=== PATIENT | male | born 1940 | race Caucasian/White ===

== ENCOUNTER → 2021-04-13 12:50 | Outpatient (BNVA) | payer MEDICARE, SELFPAY | PROVIDERS: PCP Internal Medicine; Referring Provider Internal Medicine; Visit Provider Internal Medicine Cardiovascular Disease ==

== ENCOUNTER → 2021-04-27 11:14 | Outpatient (BNVA) | payer MEDICARE, SELFPAY | PROVIDERS: PCP Internal Medicine; Visit Provider Internal Medicine Cardiovascular Disease | DX: Z45.010 Encounter for checking and testing of cardiac pacemaker pulse generator [battery] (principal); I34.0 Nonrheumatic mitral (valve) insufficiency; R06.01 Orthopnea | CPT/HCPCS: 93005; 99212 ==

== ENCOUNTER → 2021-04-29 06:57 | Outpatient (REF) | payer MEDICARE, SELFPAY ==
--- NOTE | 2021-04-29 07:04 | CA_ITS ---
Transthoracic Echocardiogram Patient (Last, First, Middle): Jimbo Aguillon, Gender: Male Date of : 1940 Age: 81 Procedure Date: 04/29/2021 Procedure Type: Transthoracic Echocardiogram Location: OP Height: 172.72 cm Weight: 106.14 kg BSA: 2.18 m2 Heart Rate: bpm BP: 154 / 60 mmHg Administrative Assistant Office Manager: Referring MD: Derrell Kelly MD Symptoms: I34.0 - Nonrheumatic mitral (valve) insufficiency Conclusions: - Normal left ventricular cavity size. The left ventricular systolic function is low normal. The visually estimated ejection fraction is between 50-55%. - Normal right ventricular cavity size and systolic function. - The left atrium is severely dilated. The right atrium is severely dilated. - There is mild anterior and posterior mitral leaflet thickening. There is severe mitral valve regurgitation. The mitral regurgitation jet is directed posteriorly. - There is moderate tricuspid valve regurgitation. Moderately elevated right atrial pressure. There is no evidence of pulmonary hypertension. - There is mild dilatation of the ascending aorta measuring 3.70 cm. Findings Left Ventricle Normal left ventricular cavity size. The left ventricular systolic function is low normal. The visually estimated ejection fraction is between 50-55%. There is no evidence of regional wall motion abnormalities. Diastolic function is indeterminate on the basis of available data. Right Ventricle Normal right ventricular cavity size and systolic function. Atria The left atrium is severely dilated. The right atrium is severely dilated. Aortic Valve There is mild calcification of the aortic valve. There is no aortic valve stenosis. There is mild aortic valve regurgitation. Mitral Valve There is mild anterior and posterior mitral leaflet thickening. There is severe mitral valve regurgitation. The mitral regurgitation jet is directed posteriorly. There is no mitral valve stenosis. Pulmonic Valve The pulmonic valve is likely normal. Tricuspid Valve Normal tricuspid valve structure. There is moderate tricuspid valve regurgitation. Moderately elevated right atrial pressure. There is no evidence of pulmonary hypertension. Great Vessels There is mild dilatation of the ascending aorta measuring 3.70 cm. The visualized portions of the pulmonary artery and branches are normal. Venous The inferior vena cava is dilated and collapses less than 50% with inspiration. Pericardium/Pleural There is no evidence of pericardial effusion. Prior Study Comparison Changes noted compared to prior study dated: 06/14/2018. EF 50-55%, ESD 4.85 cm, eccentric severe MR Measurements 2D Linear Measurements RVIDd: 3.45 RVIDd Index: 1.58 IVSd: 0.79 0.6-0.9/0.6-1.0 cm LVIDd: 5.92 3.9-5.3/4.2-5.9 cm LVIDd Index: 2.72 2.4-3.2/2.2-3.1 cm/m2 LVIDs: 4.85 2.0-3.6 cm LVPWd: 1.37 0.7-1.1 cm Ao Root: 3.30 2.1-3.5 cm LA Diam: 5.40 2.7-3.8/3.0-4.0 cm LAIDs Index: 2.48 1.5-2.3 cm/m2 LV Mass: 332.03 67-162/88-224 g LV Mass Index: 152.31 43-95/49-115 g/m2 LVOT Diam: 2.30 3.0+(-)1.3 cm 2D Systolic Function EF 4C: 48.40 >55% EF 2C: 54.10 >55% EF BiP: 51.10 >55% Mitral Valve MR Vol - PW Dopp: 27.45 MR VTI: 1.83 MR ERO: 15.00 MR Alias Neil: 0.38 MR RAD: 0.60 Aortic Valve AoV Pk Neil: 1.31 AoV Mn Neil: 0.95 AoV VTI: 0.25 AoV Pk Grad: 7.00 Aov Mn Grad: 4.00 KELLEN Cont.VTI: 3.28 AI Pk Neil: 4.37 AI Bollinger: 3.38 LVOT LVOT Pk Neil: 1.01 LVOT Mn Neil: 0.68 LVOT VTI: 0.20 LVOT Pk Grad: 4.00 LVOT Mn Grad: 2.00 LVOT Diam: 2.30 LVOT Area: 4.15 Right Ventricle TAPSE (mm): 16.00 TVS' Neil: 8.30 Tricuspid Valve TR Pk Neil: 2.51 TR Pk Grad: 25.00 RA Press: 8.00 RVSP: 33.00 Great Vessels Aorta Ao Root-2D: 3.30 2.0-3.7 cm Ao Asc: 3.70 2.1-3.4 cm Updated in Other Vendor System with Status of Final Derrell Kelly MD electronically signed on 04/29/2021 11:54:28 AM with status of Final
== END ==
LOC: HO.CARD 06:57
PROVIDERS: Visit Provider Internal Medicine Cardiovascular Disease
DX: I34.0 Nonrheumatic mitral (valve) insufficiency (principal)
CPT/HCPCS: 93306

== ENCOUNTER 2021-06-04 08:39 | Outpatient (REF) | payer MEDICARE, SELFPAY ==
[2021-06-04 09:03] LABS: MANUAL DIFF FLAG NO
[2021-06-04 09:17] LABS: Basophils Percent Auto 0.5 % (0-2); Eosinophils Absolute Auto 0.2 X10*3/uL (0.0-0.4); Eosinophils Percent Auto 4.9 % (0-4); Hematocrit 26.8 % (42-52); Hemoglobin 8.2 g/dl (14.0-18.0); Imm Gran Abs Auto 0.01 X10*3/uL (0.00-0.03); Imm Gran Pct Auto 0.3 % (0.0-0.4); Lymphocytes Absolute Auto 0.8 X10*3/uL (1.2-4.9); Lymphocytes Percent Auto 19.4 % (20-40); Mean Corpuscular HGB Conc 30.6 g/dl (31.0-36.0); Mean Corpuscular Hemoglobin 25.8 pg (27.0-33.0); Mean Corpuscular Volume 84.3 fL (80-98); Mean Platelet Volume 10.6 fL (9.4-12.4); Monocytes Absolute Auto 0.3 X10*3/uL (0.1-1.2); Monocytes Percent Auto 7.8 % (2-11); Neutrophils Absolute Auto 2.6 X10*3/uL (2.0-8.3); Neutrophils Percent Auto 67.1 % (45-73); Platelet Count 138 X10*3/uL (160-400); Red Blood Count 3.18 X10*6/uL (4.60-5.80); Red Cell Distribution Width 13.2 % (11.0-16.0); White Blood Count 3.9 X10*3/uL (4.8-10.8)
[2021-06-04 09:22] LABS: INTERNATIONAL NORM RATIO 1.3 (0.9-1.1); Prothrombin Time 14.3 SEC (9.9-13.0)
[2021-06-04 10:04] LABS: Anion Gap 9 (12-20); Blood Urea Nitrogen 10 mg/dL (9-16); Calcium 9.4 mg/dL (8.4-10.2); Carbon Dioxide 30 mmol/L (22-29); Chloride 108 mmol/L (96-108); Estimated Glomerular Filt Rate > 60; Glucose Random 121 mg/dL (60-115); Potassium 4.3 mmol/L (3.3-5.1); Sodium 143 mmol/L (135-145)
== END 2021-06-04 08:40 | disposition home or self-care (01) ==
LOC: HO.LAB 08:39
PROVIDERS: PCP Internal Medicine; Visit Provider Internal Medicine Cardiovascular Disease
DX: I48.91 Unspecified atrial fibrillation (principal)
CPT/HCPCS: 36415; 80048; 85025; 85610

== ENCOUNTER 2021-06-11 09:04 | Day surgery (SDC) | payer MEDICARE, SELFPAY ==
[2021-06-05 09:33] VITALS: BMI 38.4
--- NOTE | 2021-06-10 11:42 | HO.ANESPROP2 ---
Documented by User: Areli Zamora NP 06/10/21 11:44 HPI - Anesthesia Eval Consult details Narrative: 81yo M for Pacemaker Generator Change PMFSH Active Problems Active Problems: All Active Problems (Updated 06/05/21 @ 09:18 by Reanna Snyder RN) Mitral regurgitation (Acute) Orthopnea (Acute) Pacemaker at end of battery life (Acute) Past Medical History Medical History Chronic atrial fibrillation Elevated cholesterol Hypothyroid On anticoagulant therapy Pacemaker Sleep apnea Stenosis of artery of left lower extremity Family History Family History Father HTN (hypertension) Mother Liver problem Surgical History Surgical History History of esophagogastroduodenoscopy (EGD) History of permanent cardiac pacemaker placement Social History Social History Alcohol intake: current Alcohol intake frequency: holidays/special occasions only Patient Tobacco Use Status: Former Tobacco user Quit Date: 1980 Tobacco use type: Cigarette Years Smoked: 30 Use of substances other than those prescribed or required for medical reasons: No Are you DNR?: No Advance Directives: No Advance Directives Information Provided: Yes (informational brochure mailed) Advance Directives on File: No Meds Allergies Allergy/AdvReac Type Severity Reaction Status Date / Time Penicillins [PCN] Allergy Intermediate RASH Verified 04/27/21 11:30 Home Medications Medication Instructions Recorded Confirmed Last Taken Type amlodipine 5 mg tablet 5 mg PO DAILY 04/27/21 06/05/21 06/11/21 06:30 History ascorbate calcium (vitamin C) 500 500 mg PO DAILY 04/27/21 06/05/21 Unknown History mg tablet atorvastatin 20 mg tablet 20 mg PO DAILY 04/27/21 06/05/21 Unknown History carvedilol 25 mg tablet 25 mg PO BID 04/27/21 06/05/21 06/11/21 06:30 History cholecalciferol (vitamin D3) 250 250 mcg PO DAILY 04/27/21 06/05/21 Unknown History mcg (10,000 unit) capsule digoxin 125 mcg (0.125 mg) tablet 125 mcg PO DAILY 04/27/21 06/05/21 06/11/21 06:30 History levothyroxine 125 mcg capsule 125 mcg PO DAILY 04/27/21 06/05/21 06/11/21 06:30 History rivaroxaban 20 mg tablet (Xarelto) 20 mg PO DAILY 04/27/21 06/05/21 Unknown History Exam Exam Date and Time: June 10, 2021 1142 Height,Weight and Vital Signs: Height 5 ft 6 in Weight 108 kg Pertinent Lab Results Pertinent Lab Results: Laboratory Tests 06/04/21 06/04/21 09:00 09:00 WBC 3.9 L Hgb 8.2 L Hct 26.8 L Plt Count 138 L Sodium 143 Potassium 4.3 Chloride 108 Carbon Dioxide 30 H BUN 10 Creatinine 0.85 Narrative Narrative: EKG 03/2021 Atrial fibrillation 85 beats per minute, normal axis, nonspecific ST-T changes, QTC 454 milliseconds ECHO 04/2021 Conclusions: - Normal left ventricular cavity size.? The left ventricular ? ? systolic function is low normal.? The visually estimated ejection fraction is between 50-55%.? - Normal right ventricular cavity size and systolic function.? ? - The left atrium is severely dilated.? The right atrium is? ? ? severely dilated.? - There is mild anterior and posterior mitral leaflet thickening. There is severe mitral valve regurgitation.? The mitral? regurgitation jet is directed posteriorly. ? - There is moderate tricuspid valve regurgitation.? Moderately ? elevated right atrial pressure.? There is no evidence of ? pulmonary hypertension.? - There is mild dilatation of the ascending aorta measuring 3.70 cm.?? Cardiac Device Check 03/2021 Details: [employer] latitude Approximate time to explant is less than 3 months.? Ventricular paced 15% time.? No atrial tachycardia or atrial fibrillation noticed. Assessment and Plan Assessment Anesthesia Assessment: Chart Reviewed Documented by User: Malou Goncalves MD 06/11/21 11:31 [facility] Active Problems Active Problems: All Active Problems (Updated 06/05/21 @ 09:18 by Reanna Snyder, RN) Mitral regurgitation (Acute) Orthopnea (Acute) Pacemaker at end of battery life (Acute) PINEDA. Not used CPAP for over a year. Awaiting new machine Raspy voice SOB not worsened recently Afib. Last dose of xarelto 06/08/21 Increased BMI Past Medical History Medical History Chronic atrial fibrillation Elevated cholesterol Hypothyroid On anticoagulant therapy Pacemaker Sleep apnea Stenosis of artery of left lower extremity Family History Family History Father HTN (hypertension) Mother Liver problem Family history of problems with anesthesia: No Surgical History Surgical History History of esophagogastroduodenoscopy (EGD) History of permanent cardiac pacemaker placement History of Problems with Anesthesia: No Social History Social History Alcohol intake: current Alcohol intake frequency: holidays/special occasions only Patient Tobacco Use Status: Former Tobacco user Quit Date: 1980 Tobacco use type: Cigarette Years Smoked: 30 Use of substances other than those prescribed or required for medical reasons: No Are you DNR?: No Advance Directives: No Advance Directives Information Provided: Yes (informational brochure mailed) Advance Directives on File: No Meds Allergies Allergy/AdvReac Type Severity Reaction Status Date / Time Penicillins [PCN] Allergy Intermediate RASH Verified 04/27/21 11:30 Home Medications Medication Instructions Recorded Confirmed Last Taken Type amlodipine 5 mg tablet 5 mg PO DAILY 04/27/21 06/05/21 06/11/21 06:30 History ascorbate calcium (vitamin C) 500 500 mg PO DAILY 04/27/21 06/05/21 Unknown History mg tablet atorvastatin 20 mg tablet 20 mg PO DAILY 04/27/21 06/05/21 Unknown History carvedilol 25 mg tablet 25 mg PO BID 04/27/21 06/05/21 06/11/21 06:30 History cholecalciferol (vitamin D3) 250 250 mcg PO DAILY 04/27/21 06/05/21 Unknown History mcg (10,000 unit) capsule digoxin 125 mcg (0.125 mg) tablet 125 mcg PO DAILY 04/27/21 06/05/21 06/11/21 06:30 History levothyroxine 125 mcg capsule 125 mcg PO DAILY 04/27/21 06/05/21 06/11/21 06:30 History rivaroxaban 20 mg tablet (Xarelto) 20 mg PO DAILY 04/27/21 06/05/21 Unknown History Exam Airway Mallampati Class: III TM Dist: >3cm Neck ROM: Full Heart: Irregular Lungs: CTAB Assessment and Plan Assessment Anesthesia Assessment: Anesthesia Plan Discussed Final Anesthetic Review Family History of Problems with Anesthesia: No History of Problems with Anesthesia: No NPO: Yes ASA Class: IV Final Preanesthetic Review: No Changes in Pt Med Stat, Meds/Allgs Chart Reviewed, Consent Obtained/Reviewed and Anes Risks/Benef Reviewed Patient Risk: High Procedure Risk: Intermediate Assessment/Block/Sedation in SS: Assess/Block/Sedation-SS Anesthetic Plan Anesthetic Plan: MAC: and Other Disposition: Standard PACU
--- NOTE | 2021-06-11 10:27 | PC.NURSE ---
md gill stated okay to change vancomycin dose with pharmacy to the more appropiate weight based dose. verified. pharmacy to change.
[2021-06-11] MEDS: 0.9 % Sodium Chloride 500 ML 20 ML IVCONT (11:14)
[2021-06-11] MEDS: vancomycin HCL 1,500 MG in 0.9 % Sodium Chloride 500 ML 333.33 MG IV (11:15)
--- NOTE | 2021-06-11 16:21 | PM.OP ---
Brief Operative Note Date of Service: 06/11/21 Pre-op diagnosis: complete heart block Procedure: pacemaker generator change Plan Discharge after 1 hour No showering for 5 days and keep dressing on for 5 days Surgeon: Yenny Shipley MD Was an Chemical Processing Equipment Repairer used for this Procedure?: No Estimated blood loss (mL): 50
[2021-06-11 16:24] VITALS: BP 141/57; PULSE 82; RESP 14; TEMP 36.4; O2SAT 99
[2021-06-11 16:37] VITALS: BP 159/88; PULSE 86; RESP 14; O2SAT 95
[2021-06-11] MEDS: Acetaminophen 325 MG TABLET 650 MG PO (16:43)
[2021-06-11 16:52] VITALS: BP 161/91; PULSE 72; RESP 16; O2SAT 94
--- NOTE | 2021-06-11 17:28 | W.PM.OPN ---
Operative Note Operative Note Date of Service: 06/11/21 Narrative: Date of Service: 06/11/21 Narrative: Narrative: Procedure: Dual chamber pacemaker generator change Indication: complete heart block, JUANA Anesthesia: MAC provided by anesthtesia Procedure The risks, benefits, complications, alternatives and expected outcomes were discussed with the patient. Patient was prepped and draped in the usual sterile fashion. After the antibiotic was infused, lidocaine was infiltrated medial to the deltopectoral groove. An incision was made. The incision was extended to the prepectoral fascia using blunt dissection.The leads were detached from the prior device and attached to the new device. The pacemaker was sutured to the fascia. The system was placed in the pocket. The pin of the lead was beyond the set screws. Hemostasis was verified. The pocket was closed with 3 layers. Steristrips and tegaderm were applied Device New: [employer] Accolade MRI EL DR Pacemaker model L331 serial number [id number] RV lead: Fineline II EZ ZSterox Bipolar IS1 passive RV 58 cm, model 4457 serial number [id number] R waves 15.7 mV, threshold 0.7V at 0.4 ms, impedance 343 ohms, RA lead: Fineline II EZ Sterox Bipolar IS-1 positive Fix Steroid model 4469 serial number [id number] Impedance 307 ohms, P waves 1.0 mV in AF Programmed VVIR 60 to 130 BPM Yenny Shipley Electrophysiology/Cardiology Attending
== END 2021-06-11 17:16 | disposition home or self-care (01) ==
PROVIDERS: PCP Internal Medicine; Visit Provider Internal Medicine Cardiovascular Disease
PROC: (CPT 33228; principal; 2021-06-11 11:10)
DX: Z45.010 Encounter for checking and testing of cardiac pacemaker pulse generator [battery] (principal); I50.9 Heart failure, unspecified; I48.20 Chronic atrial fibrillation, unspecified; Z79.01 Long term (current) use of anticoagulants; Z79.899 Other long term (current) drug therapy; Z88.0 Allergy status to penicillin; Z87.891 Personal history of nicotine dependence; I34.0 Nonrheumatic mitral (valve) insufficiency
CPT/HCPCS: 33228; C1722; C1785; J3010; J3370

== ENCOUNTER 2021-06-20 10:15 | Inpatient (IN) | payer MEDICARE, SELFPAY ==
[2021-06-20] VITALS (10 sets, daily range): BP systolic 125–157; BP diastolic 50–73; PULSE 71–89; RESP 16–20; TEMP 36.6–37.1; O2SAT 93–99; BMI 39.0
--- NOTE | ~2021-06-20 | XR_ITS ---
EXAMINATION: XR CHEST CLINICAL INFORMATION: Infected pacemaker site. COMPARISON: None TECHNIQUE: Frontal view of the chest was obtained. FINDINGS: The lungs are somewhat expanded without acute pneumonic process. The heart size is enlarged. There are dual pacer electrodes in the right atrium and right ventricle. No gross bony abnormality seen. XR/XR chest 1V IMPRESSION: Mild cardiomegaly. No acute pulmonary process seen.
--- NOTE | ~2021-06-20 | US_ITS ---
EXAMINATION: US VENOUS WITH DOPPLER UPPER EXTREMITY, LEFT CLINICAL INFORMATION: Edema COMPARISON: None TECHNIQUE: Ultrasound of the upper extremity is performed using compression sonography and color and pulse Doppler flow with assessment of augmentation of flow. There is also imaging and Doppler assessment of the jugular and subclavian veins. Spectral analysis with color-flow imaging is performed. FINDINGS: Respiratory variation, normal compression, and augmented flow are noted throughout the upper extremity including the axillary, brachial, cubital, and radial and ulnar veins. There is normal flow in the internal jugular and subclavian veins. There is no visible deep or superficial thrombophlebitis. US/US venous duplex UE LT IMPRESSION: No DVT demonstrated in the left upper extremity
--- NOTE | 2021-06-20 11:23 | ECG_ITS ---
Test Reason : pace maker issue Blood Pressure : / mmHG Vent. Rate : 075 BPM Atrial Rate : 000 BPM P-R Int : 000 ms QRS Dur : 102 ms QT Int : 380 ms P-R-T Axes : 000 058 -17 degrees QTc Int : 424 ms Atrial fibrillation Low voltage QRS Intra-ventricular conduction delay Nonspecific T wave abnormality Abnormal ECG Electronic ventricular pacemaker is no longer Present T wave amplitude has decreased in Lateral leads Referred By: Nimisha Conner Electronically Signed By:ERICK ROGERS MD
--- NOTE | 2021-06-20 11:28 | ED_ITS ---
HPI - Extremity Problem General Chief complaint: Extremity Problem Stated complaint: swollen arm Time Seen by Provider: 06/20/21 11:04 Source: patient Mode of arrival: ambulatory History of Present Illness HPI Narrative: 81-year-old male with a past medical history of chronic AFib, hyperlipidemia, hypothyroid, pacemaker on Xarelto, sleep apnea, S/P your pacemaker placement on 06/11 presenting to the ED complaining of LUE and LLE swelling/edema, SOB, and drainage from pacemaker site x2 days. Reports orthopnea, sleeping with 4-5 pillows at night. fever, chills, cough, CP, abdominal pain, nausea/vomiting MD Complaint: joint swelling Related Data Home Medications Medication Instructions Recorded Confirmed carvedilol 25 mg tablet 25 mg PO BID 04/27/21 06/20/21 digoxin 125 mcg (0.125 mg) tablet 125 mcg PO DAILY 04/27/21 06/20/21 levothyroxine 125 mcg capsule 125 mcg PO DAILY 04/27/21 06/20/21 rivaroxaban 20 mg tablet (Xarelto) 20 mg PO DAILY 04/27/21 06/20/21 albuterol sulfate 90 mcg/actuation 2 puff PO Q4-6H PRN 06/20/21 06/20/21 aerosol inhaler amlodipine 5 mg tablet 1 tab PO DAILY 06/20/21 06/20/21 atorvastatin 10 mg tablet 1 tab PO DAILY 06/20/21 06/20/21 Allergies Allergy/AdvReac Type Severity Reaction Status Date / Time Penicillins [PCN] Allergy Intermediate RASH Verified 04/27/21 11:30 Review of Systems Review of Systems: Constitutional: No Fever, No Chills,No Fatigue, No Malaise ENT/Mouth: No Ear Pain, No Nasal Congestion, No sore throat Eyes: No Eye Pain, No Swelling, No Redness Cardiovascular: No Chest Pain, + SOB, No Dyspnea on Exertion, + Orthopnea, + Edema, No Palpitations Respiratory: No Cough, No Sputum, No Dyspnea Gastrointestinal: No Nausea, No Vomiting, No Diarrhea, No Constipation, No Abdominal pain Genitourinary: No Dysuria, No Hematuria, No Flank Pain, No Urinary Flow Changes, No Hesitancy Musculoskeletal: No joint pain, No Myalgias, No Joint Swelling Skin: No Skin Lesions, No rash Neuro: No Weakness, No Numbness, No Paresthesias, No Dizziness, No Headache Yes all other systems are reviewed and are negative [facility] Past Medical History Attestation statement: The following information was validated with the patient. Medical History Chronic atrial fibrillation Elevated cholesterol Hypothyroid On anticoagulant therapy Pacemaker Sleep apnea Stenosis of artery of left lower extremity Surgical History History of esophagogastroduodenoscopy (EGD) History of permanent cardiac pacemaker placement Family History Family History Father HTN (hypertension) Mother Liver problem Social History Social History Alcohol intake: current Alcohol intake frequency: does not drink Patient Tobacco Use Status: Former Tobacco user Quit Date: 1980 Tobacco use type: Cigarette Years Smoked: 30 Use of substances other than those prescribed or required for medical reasons: No Advance Directives: No Physical Exam Vital Signs: Vital Signs: Last Vital Signs Temp 98.7 F 06/20/21 10:19 Pulse 78 06/20/21 14:42 Resp 20 06/20/21 14:42 BP 125/50 L 06/20/21 14:42 Pulse Ox 96 06/20/21 14:42 Body Mass Index 39.0 Const: General: cooperative, healthy appearing and no acute distress Orientation/consciousness: patient oriented x3 Limitations: no limitations HENMT: Head: Yes normal to inspection Ears: hearing grossly normal bilaterally General nose exam: Normal external nose present Face and sinus: Yes normal facial exam Eyes: General: appearance normal, both eyes and all related structures EOM: EOMs intact bilaterally Neck: Neck: Yes normal visual inspection Chest: Other: Refer to image above. Pacemaker site oozing serous sanguinous drainage. No appreciable fluctuance/induration or surrounding cellulitis Resp: Effort & Inspection: normal respiratory effort Auscultation: crackles bilateral at the base Cardio: Rate: regular rate Heart sounds: S1 normal heart sound present and S2 normal heart sound present GI: Inspection: Yes normal to inspection Palpation (GI): Soft to palpation, nontender, no guarding and not rigid Skin: Rashes: no rashes Wounds: no wounds Neuro: General: patient oriented x3 Gait exam (Neuro): Normal gait present Extrem: Other: +4 LLE and LUE pitting edema Course Course Course Narrative: -1332--chronic leukopenia 4.1, H&H lower than baseline 7.0/23.2, patient reports takes iron so sometimes has black stool also has history of hemorrhoids > will obtain occult stool and transfuse 1 unit rbc's Transfusion consent signed and in patients chart, consent obtained with online advertising manager -INR 2.2. Troponin 4.4, BNP 269 -1345--case discussed with Cardiology, Dr. Hogue, recommended admission, I V antibiotics, case discussed with Dr. Stone will cover with Aztreonam and Vancomycin XR chest 1V IMPRESSION: Mild cardiomegaly. ? No acute pulmonary process seen. MDM - Extremity (Nontraumatic) MDM Narrative Medical decision making narrative: 81-year-old male with a past medical history of chronic AFib, hyperlipidemia, hypothyroid, pacemaker on Xarelto, sleep apnea, S/P your pacemaker placement on 06/11 presenting to the ED complaining of LUE and LLE swelling/edema, SOB, and drainage from pacemaker site x2 days. On exam vital signs stable, NAD, bibasilar crackles, 4+ pitting edema and left upper and lower extremity. Refer to images above, pacemaker site with active drainage. Concern for infected pacemaker site vs CHF. Lower concern for DVT as patient is anticoagulated Plan: EKG, labs, CXR, lactate, blood cultures, cardiology consult Lab Data Result diagrams: 06/20/21 12:58 06/20/21 12:58 Labs: Lab Results 06/20/21 06/20/21 06/20/21 Range/Units 12:17 12:58 12:58 WBC 4.1 L (4.8-10.8) X10*3/uL RBC 2.86 L (4.60-5.80) X10*6/uL Hgb 7.0 L* (14.0-18.0) g/dl Hct 23.2 L (42-52) % MCV 81.1 (80-98) fL MCH 24.5 L (27.0-33.0) pg MCHC 30.2 L (31.0-36.0) g/dl RDW 14.4 (11.0-16.0) % Plt Count 169 (160-400) X10*3/uL MPV 10.7 (9.4-12.4) fL Immature Gran % (Auto) 0.2 (0.0-0.4) % Neut % (Auto) 71.6 (45-73) % Lymph % (Auto) 17.3 L (20-40) % Boyle % (Auto) 7.4 (2-11) % Eos % (Auto) 3.0 (0-4) % Baso % (Auto) 0.5 (0-2) % Lymph # (Auto) 0.7 L (1.2-4.9) X10*3/uL Boyle # (Auto) 0.3 (0.1-1.2) X10*3/uL Eos # (Auto) 0.1 (0.0-0.4) X10*3/uL Baso # (Auto) 0.0 (0.0-0.2) X10*3/uL Abs Immat Gran (auto) 0.01 (0.00-0.03) X10*3/uL Absolute Neuts (auto) 2.9 (2.0-8.3) X10*3/uL Absolute Nucleated RBC 0.000 (0.0-0.012) X10*3/uL Nucleated RBC % (auto) 0.0 (0.0-0.2) /100WBC ESR 18 H (0-15) MM/HR PT (9.9-13.0) SEC INR (0.9-1.1) Sodium (135-145) mmol/L Potassium (3.3-5.1) mmol/L Chloride (96-108) mmol/L Carbon Dioxide (22-29) mmol/L Anion Gap (12-20) BUN (9-16) mg/dL Creatinine (0.5-1.4) mg/dL Estim Creat Clear Calc Estimated GFR Random Glucose (60-115) mg/dL Lactic Acid (0.5-2.0) mmol/L Calcium (8.4-10.2) mg/dL Magnesium (1.6-2.6) mg/dL Total Bilirubin (0.0-1.0) mg/dL Direct Bilirubin (0.0-0.5) mg/dL AST (5-37) U/L ALT (0-40) U/L Alkaline Phosphatase (39-117) U/L Troponin I High Sens (<3.5-35.0) ng/L B-Natriuretic Peptide (<100) pg/mL Total Protein (6.5-8.0) g/dL Albumin (3.5-5.0) g/dL Stool Occult Blood (NEGATIVE) COVID-19 (EVELINA) Negative (Negative) COVID-19 Clin Com See Note Blood Type Antibody Screen Crossmatch 06/20/21 06/20/21 06/20/21 Range/Units 12:58 12:58 12:58 WBC (4.8-10.8) X10*3/uL RBC (4.60-5.80) X10*6/uL Hgb (14.0-18.0) g/dl Hct (42-52) % MCV (80-98) fL MCH (27.0-33.0) pg MCHC (31.0-36.0) g/dl RDW (11.0-16.0) % Plt Count (160-400) X10*3/uL MPV (9.4-12.4) fL Immature Gran % (Auto) (0.0-0.4) % Neut % (Auto) (45-73) % Lymph % (Auto) (20-40) % Boyle % (Auto) (2-11) % Eos % (Auto) (0-4) % Baso % (Auto) (0-2) % Lymph # (Auto) (1.2-4.9) X10*3/uL Boyle # (Auto) (0.1-1.2) X10*3/uL Eos # (Auto) (0.0-0.4) X10*3/uL Baso # (Auto) (0.0-0.2) X10*3/uL Abs Immat Gran (auto) (0.00-0.03) X10*3/uL Absolute Neuts (auto) (2.0-8.3) X10*3/uL Absolute Nucleated RBC (0.0-0.012) X10*3/uL Nucleated RBC % (auto) (0.0-0.2) /100WBC ESR (0-15) MM/HR PT 25.0 H (9.9-13.0) SEC INR 2.2 H (0.9-1.1) Sodium 138 (135-145) mmol/L Potassium 4.1 (3.3-5.1) mmol/L Chloride 104 (96-108) mmol/L Carbon Dioxide 29 (22-29) mmol/L Anion Gap 9 L (12-20) BUN 14 (9-16) mg/dL Creatinine 0.92 (0.5-1.4) mg/dL Estim Creat Clear Calc 76.7 Estimated GFR > 60 Random Glucose 111 (60-115) mg/dL Lactic Acid (0.5-2.0) mmol/L Calcium 9.6 (8.4-10.2) mg/dL Magnesium 2.1 (1.6-2.6) mg/dL Total Bilirubin 0.5 (0.0-1.0) mg/dL Direct Bilirubin 0.2 (0.0-0.5) mg/dL AST 21 (5-37) U/L ALT 17 (0-40) U/L Alkaline Phosphatase 95 (39-117) U/L Troponin I High Sens 4.4 (<3.5-35.0) ng/L B-Natriuretic Peptide 269 H (<100) pg/mL Total Protein 6.7 (6.5-8.0) g/dL Albumin 4.1 (3.5-5.0) g/dL Stool Occult Blood (NEGATIVE) COVID-19 (EVELINA) (Negative) COVID-19 Clin Com Blood Type Antibody Screen Crossmatch 06/20/21 06/20/21 06/20/21 Range/Units 12:58 14:43 14:43 WBC (4.8-10.8) X10*3/uL RBC (4.60-5.80) X10*6/uL Hgb (14.0-18.0) g/dl Hct (42-52) % MCV (80-98) fL MCH (27.0-33.0) pg MCHC (31.0-36.0) g/dl RDW (11.0-16.0) % Plt Count (160-400) X10*3/uL MPV (9.4-12.4) fL Immature Gran % (Auto) (0.0-0.4) % Neut % (Auto) (45-73) % Lymph % (Auto) (20-40) % Boyle % (Auto) (2-11) % Eos % (Auto) (0-4) % Baso % (Auto) (0-2) % Lymph # (Auto) (1.2-4.9) X10*3/uL Boyle # (Auto) (0.1-1.2) X10*3/uL Eos # (Auto) (0.0-0.4) X10*3/uL Baso # (Auto) (0.0-0.2) X10*3/uL Abs Immat Gran (auto) (0.00-0.03) X10*3/uL Absolute Neuts (auto) (2.0-8.3) X10*3/uL Absolute Nucleated RBC (0.0-0.012) X10*3/uL Nucleated RBC % (auto) (0.0-0.2) /100WBC ESR (0-15) MM/HR PT (9.9-13.0) SEC INR (0.9-1.1) Sodium (135-145) mmol/L Potassium (3.3-5.1) mmol/L Chloride (96-108) mmol/L Carbon Dioxide (22-29) mmol/L Anion Gap (12-20) BUN (9-16) mg/dL Creatinine (0.5-1.4) mg/dL Estim Creat Clear Calc Estimated GFR Random Glucose (60-115) mg/dL Lactic Acid 1.0 (0.5-2.0) mmol/L Calcium (8.4-10.2) mg/dL Magnesium (1.6-2.6) mg/dL Total Bilirubin (0.0-1.0) mg/dL Direct Bilirubin (0.0-0.5) mg/dL AST (5-37) U/L ALT (0-40) U/L Alkaline Phosphatase (39-117) U/L Troponin I High Sens (<3.5-35.0) ng/L B-Natriuretic Peptide (<100) pg/mL Total Protein (6.5-8.0) g/dL Albumin (3.5-5.0) g/dL Stool Occult Blood POSITIVE (NEGATIVE) COVID-19 (EVELINA) (Negative) COVID-19 Clin Com Blood Type O Positive Antibody Screen NEGATIVE Crossmatch See Detail Discharge Plan Discharge Clinical Impression: Infection of pacemaker pulse generator site Anemia Qualifiers: Anemia type: unspecified type Qualified Code(s): D64.9 - Anemia, unspecified Edema Qualifiers: Edema type: localized Qualified Code(s): R60.0 - Localized edema Patient Disposition: Admitted As Inpatient Interventions: Admission Worksheet (ED) Last Done: 06/20/21 16:49 Discharge Date/Time: 06/20/21 16:49
--- NOTE | 2021-06-20 11:47 | PC.NURSE ---
Addendum entered by Hannah Singh 06/20/21 12:30: significant swelling noticed on the left arm/hand area Original Note: pt alert and oriented, skin appropriate for ethnicity, respirations even and ls clear, pt reports getting a pacemaker placed on the 06/11/21, now having lots of swelling in the left lower extremities and feeling sob when laying flat , needs thee pillows at night, ns on the monitor
[2021-06-20 12:43] LABS: COVID-19 Test Negative (Negative); IDNOW Serial# 08D9AD1C
[2021-06-20 13:06] LABS: MANUAL DIFF FLAG NO
[2021-06-20 13:12] LABS: Basophils Percent Auto 0.5 % (0-2); Eosinophils Absolute Auto 0.1 X10*3/uL (0.0-0.4); Hematocrit 23.2 % (42-52); Imm Gran Abs Auto 0.01 X10*3/uL (0.00-0.03); Imm Gran Pct Auto 0.2 % (0.0-0.4); Lymphocytes Absolute Auto 0.7 X10*3/uL (1.2-4.9); Lymphocytes Percent Auto 17.3 % (20-40); Mean Corpuscular HGB Conc 30.2 g/dl (31.0-36.0); Mean Corpuscular Hemoglobin 24.5 pg (27.0-33.0); Mean Corpuscular Volume 81.1 fL (80-98); Mean Platelet Volume 10.7 fL (9.4-12.4); Monocytes Absolute Auto 0.3 X10*3/uL (0.1-1.2); Monocytes Percent Auto 7.4 % (2-11); Neutrophils Absolute Auto 2.9 X10*3/uL (2.0-8.3); Neutrophils Percent Auto 71.6 % (45-73); Platelet Count 169 X10*3/uL (160-400); Red Blood Count 2.86 X10*6/uL (4.60-5.80); Red Cell Distribution Width 14.4 % (11.0-16.0); White Blood Count 4.1 X10*3/uL (4.8-10.8)
[2021-06-20 13:27] LABS: INTERNATIONAL NORM RATIO 2.2 (0.9-1.1)
[2021-06-20 13:28] LABS: B Type Natriuretic Peptide 269 pg/mL (<100); Troponin-I High Sensitivity 4.4 ng/L (<3.5-35.0)
[2021-06-20 13:38] LABS: Alanine Aminotransferase 17 U/L (0-40); Albumin Level 4.1 g/dL (3.5-5.0); Alkaline Phosphatase 95 U/L (39-117); Anion Gap 9 (12-20); Aspartate Amino Transferase 21 U/L (5-37); Bilirubin Direct 0.2 mg/dL (0.0-0.5); Bilirubin Total 0.5 mg/dL (0.0-1.0); Blood Urea Nitrogen 14 mg/dL (9-16); Calcium 9.6 mg/dL (8.4-10.2); Carbon Dioxide 29 mmol/L (22-29); Chloride 104 mmol/L (96-108); Creatinine Clr Calc Pharmacy 76.7; Estimated Glomerular Filt Rate > 60; Glucose Random 111 mg/dL (60-115); Magnesium 2.1 mg/dL (1.6-2.6); Potassium 4.1 mmol/L (3.3-5.1); Sodium 138 mmol/L (135-145); Total Protein 6.7 g/dL (6.5-8.0)
[2021-06-20 13:52] LABS: Erythrocyte Sedimentation Rate 18 MM/HR (0-15)
--- NOTE | 2021-06-20 14:10 | PC.NURSE ---
called pharmacy awaiting for the abx to be brought up
[2021-06-20] MEDS: Aztreonam 1 GM in 0.9 % Sodium Chloride 50 ML IV (14:33)
[2021-06-20 14:48] LABS: OBS Int Ctl Valid YES; OBS1 POSITIVE (NEGATIVE)
--- NOTE | 2021-06-20 15:05 | PM.IMHP ---
History of Present Illness Date of Service: 06/20/21 81-year-old male with a past medical history of chronic AFib, hyperlipidemia, hypothyroid, pacemaker on Xarelto, sleep apnea, S/P your pacemaker placement on 06/11 presenting to the ED complaining of LUE and LLE swelling/edema, SOB, and drainage from pacemaker site x2 days.? Reports orthopnea, sleeping with 4-5 pillows at night.?No fever, chills, cough, CP, abdominal pain, nausea/vomiting ER course Suture line of newly placed pacer demonstrates erythema and drainage with some mild edema. Hemoglobin 7. Patient will be admitted; IV antibiotics pending blood cultures Review of Systems Review of Systems: Denies chest pain Denies shortness of breath; however describes 5 pillow orthopnea Denies nausea vomiting diarrhea PMFSH Medical History Chronic atrial fibrillation Elevated cholesterol Hypothyroid On anticoagulant therapy Pacemaker Sleep apnea Stenosis of artery of left lower extremity Family History Father HTN (hypertension) Mother Liver problem Pertinent family history: . Surgical History History of esophagogastroduodenoscopy (EGD) History of permanent cardiac pacemaker placement Social History Alcohol intake: current Alcohol intake frequency: does not drink Patient Tobacco Use Status: Former Tobacco user Quit Date: 1980 Tobacco use type: Cigarette Years Smoked: 30 Use of substances other than those prescribed or required for medical reasons: No Advance Directives: No Meds Allergies Allergy/AdvReac Type Severity Reaction Status Date / Time Penicillins [PCN] Allergy Intermediate RASH Verified 04/27/21 11:30 Active Medications: Current Medications Acetaminophen (Acetaminophen 325 Mg Tablet) 650 mg PO Q6H PRN PRN Reason: Pain, Mild (Pain Scale 1-3) Vancomycin HCl 1,500 mg/ (Sodium Chloride) 500 mls @ 333.333 mls/hr IV ONCE ONE Stop: 06/20/21 15:05 Melatonin (Melatonin 3 Mg Tablet) 6 mg PO BEDTIME PRN PRN Reason: Insomnia Pharmacy Consult (Consult Rx Perform Med Rec) 1 each MISCELLANE ONCE PRN PRN Reason: Consult order Sodium Chloride (0.9 % Sodium Chloride Flush 3 Ml Syringe) 3 ml IVFLUSH QSHIFT [facility] [place] Home Medications Medication Instructions Recorded Confirmed Last Taken Type carvedilol 25 mg tablet 25 mg PO BID 04/27/21 06/20/21 06/11/21 06:30 History digoxin 125 mcg (0.125 mg) tablet 125 mcg PO DAILY 04/27/21 06/20/21 06/11/21 06:30 History levothyroxine 125 mcg capsule 125 mcg PO DAILY 04/27/21 06/20/21 06/11/21 06:30 History rivaroxaban 20 mg tablet (Xarelto) 20 mg PO DAILY 04/27/21 06/20/21 Unknown History albuterol sulfate 90 mcg/actuation 2 puff PO Q4-6H PRN 06/20/21 06/20/21 Unknown History aerosol inhaler amlodipine 5 mg tablet 1 tab PO DAILY 06/20/21 06/20/21 Unknown History atorvastatin 10 mg tablet 1 tab PO DAILY 06/20/21 06/20/21 Unknown History Physical Exam Vital Signs and Narrative: Vital Signs: Last Vital Signs Temp 98.7 F 06/20/21 10:19 Pulse 78 06/20/21 14:42 Resp 20 06/20/21 14:42 BP 125/50 L 06/20/21 14:42 Pulse Ox 96 06/20/21 14:42 Body Mass Index 39.0 Const: Other: Awake alert oriented x3 no acute distress HENMT: Other: Mucous membranes moist; for oropharynx clear Chest: Other: Left anterior chest just inferior to the clavicle erythematous edematous; suture line from recent pacer insertion draining clear red fluid. Tender to palpation. Resp: Other: Clear to auscultation bilaterally no rales rhonchi or wheezes Cardio: Other: No S4; positive S1-S2; no S3 murmurs of gallops GI: Other: Soft nontender nondistended with normoactive bowel sounds there is no appreciable hepatosplenomegaly Neuro: Other: Cranial nerves true through 12 grossly intact as tested. Motor is 5/5 all extremities. Sensation intact. Cognition appropriate Extrem: Other: Bilateral edema noted Results Labs CBC and Chem 7: 06/20/21 12:58 06/20/21 12:58 Labs: Laboratory Results - last 24 hr 06/20/21 06/20/21 06/20/21 12:17 12:58 12:58 MCV 81.1 MCH 24.5 L MCHC 30.2 L RDW 14.4 Plt Count 169 MPV 10.7 Immature Gran % (Auto) 0.2 Neut % (Auto) 71.6 Lymph % (Auto) 17.3 L [place] % (Auto) 7.4 Eos % (Auto) 3.0 Baso % (Auto) 0.5 Lymph # (Auto) 0.7 L [place] # (Auto) 0.3 Eos # (Auto) 0.1 Baso # (Auto) 0.0 Abs Immat Gran (auto) 0.01 Absolute Neuts (auto) 2.9 Absolute Nucleated RBC 0.000 Nucleated RBC % (auto) 0.0 ESR 18 H PT INR Anion Gap Estim Creat Clear Calc Estimated GFR Random Glucose Lactic Acid Calcium Magnesium Total Bilirubin Direct Bilirubin AST ALT Alkaline Phosphatase Troponin I High Sens B-Natriuretic Peptide Total Protein Albumin Stool Occult Blood COVID-19 (EVELINA) Negative COVID-19 Clin Com See Note Blood Type Crossmatch 06/20/21 06/20/21 06/20/21 12:58 12:58 12:58 MCV MCH MCHC RDW Plt Count MPV Immature Gran % (Auto) Neut % (Auto) Lymph % (Auto) [place] % (Auto) Eos % (Auto) Baso % (Auto) Lymph # (Auto) [place] # (Auto) Eos # (Auto) Baso # (Auto) Abs Immat Gran (auto) Absolute Neuts (auto) Absolute Nucleated RBC Nucleated RBC % (auto) ESR PT 25.0 H INR 2.2 H Anion Gap 9 L Estim Creat Clear Calc 76.7 Estimated GFR > 60 Random Glucose 111 Lactic Acid Calcium 9.6 Magnesium 2.1 Total Bilirubin 0.5 Direct Bilirubin 0.2 AST 21 ALT 17 Alkaline Phosphatase 95 Troponin I High Sens 4.4 B-Natriuretic Peptide 269 H Total Protein 6.7 Albumin 4.1 Stool Occult Blood COVID-19 (EVELINA) COVID-19 Clin Com Blood Type Crossmatch 06/20/21 06/20/21 06/20/21 12:58 14:43 14:43 MCV MCH MCHC RDW Plt Count MPV Immature Gran % (Auto) Neut % (Auto) Lymph % (Auto) [place] % (Auto) Eos % (Auto) Baso % (Auto) Lymph # (Auto) [place] # (Auto) Eos # (Auto) Baso # (Auto) Abs Immat Gran (auto) Absolute Neuts (auto) Absolute Nucleated RBC Nucleated RBC % (auto) ESR PT INR Anion Gap Estim Creat Clear Calc Estimated GFR Random Glucose Lactic Acid 1.0 Calcium Magnesium Total Bilirubin Direct Bilirubin AST ALT Alkaline Phosphatase Troponin I High Sens B-Natriuretic Peptide Total Protein Albumin Stool Occult Blood POSITIVE COVID-19 (EVELINA) COVID-19 Clin Com Blood Type O Positive Crossmatch See Detail Imaging Radiologist's Impressions: Impressions Chest X-Ray 06/20/21 11:23 IMPRESSION: Mild cardiomegaly. No acute pulmonary process seen. Assessment and Plan (1) Infection of pacemaker pulse generator site: Status: Acute (2) Anemia: Qualifiers: Anemia type: unspecified type Qualified Code(s): D64.9 - Anemia, unspecified Status: Acute (3) Edema: Qualifiers: Edema type: localized Qualified Code(s): R60.0 - Localized edema Status: Acute 81-year-old male presents after pacemaker replacement 06/11/2021. States over the last 48 hours developed redness and pain with drainage over the insertion site. He has also noted some swelling in his left arm along with his left leg. He denies fever chills. His hemoglobin was found to be 7 on presentation 1. Cellulitis; query pacemaker pocket infection Given Vanco/aztreonam in the ER after blood cultures; will continue same Will ask ID to see 2. Complete heart block status post pacer Paced rhythm on the monitor; last cardiology input. Admit to telemetry 3. Anemia Unclear etiology; will transfuse 2 units of packed red blood cells with Lasix in between. Follow-up CBC in a.m. 4. Atrial fibrillation; chronic. Paced rhythm Continue carvedilol digoxin and Xarelto. Monitor on telemetry 5. Hypothyroidism Continue outpatient replacement as previously ordered Check TSH in a.m. Full code/DVT prophylaxis; Xarelto Quality Stroke Does the patient have a stroke diagnosis?: No VTE Prior VTE?: No VTE Risk Level:: Medical - moderate - high VTE Device Contraindication: Treatment Not Indicated VTE Drug Contraindication: N/A - Med Ordered
[2021-06-20] MEDS: vancomycin HCL 1,500 MG in 0.9 % Sodium Chloride 500 ML 333.33 MG IV (15:09)
[2021-06-20] MEDS: 0.9 % Sodium Chloride Flush 3 ML SYRINGE IVFLUSH ×2 (15:47→21:18)
--- NOTE | 2021-06-20 15:51 | PHA.PROG ---
Admission Date/Time: June 20, 2021 15:01 Indication: SSTI Weight in k.573 kg Serum Creatinine - Last 168 Hours 06/20/21 12:58 Creatinine 0.92 Estimated CrCl and GFR - Last 168 Hours 06/20/21 12:58 Estim Creat Clear Calc 76.7 Estimated GFR > 60 Vancomycin Loading Dose: 1500 MG Current Vancomycin Dosing Regimen: [id number] Vancomycin Monitoring using AUC goal of 400 - 600 range with trough as surrogate marker: 393 Date and Time for next Vancomycin Level to be drawn: 1400 Pharmacist Comments on Vancomycin Plan: based on age an renal fucntion shot a little lower and ordered a earlier trough and will readjust 06/21 based on that. expected trough 13.5 Vancomycin dosing will take advantage of [employer] as a clinical decision support tool that uses Bayesian modeling to calculate individual patient's pharmacokinetic parameters and forecast the patient's drug concentration time course with the target goal AUC 24 range of 400 - 600 mg/L/hr.
--- NOTE | 2021-06-20 16:15 | PC.NURSE ---
called med/surg to give report put no answer
--- NOTE | 2021-06-20 16:26 | PC.NURSE ---
report given to med/surgical services assistant
--- NOTE | 2021-06-20 18:15 | PC.NURSE ---
Per Tankroom Worker, patient in afib with run of [address] Mohr made aware.
[2021-06-20] MEDS: carvediloL 25 MG TABLET PO (20:37)
[2021-06-21] VITALS (14 sets, daily range): BP systolic 120–175; BP diastolic 58–80; PULSE 71–88; RESP 16–20; TEMP 36–36.6; O2SAT 94–96
[2021-06-21] MEDS: vancomycin HCL 750 MG in 0.9 % Sodium Chloride 250 ML 265 MG IV (03:59)
[2021-06-21 05:42] LABS: Hematocrit 23.9 % (42-52); Hemoglobin 7.1 g/dl (14.0-18.0); Mean Corpuscular HGB Conc 29.7 g/dl (31.0-36.0); Mean Corpuscular Hemoglobin 24.1 pg (27.0-33.0); Mean Platelet Volume 11.2 fL (9.4-12.4); Platelet Count 139 X10*3/uL (160-400); Red Blood Count 2.95 X10*6/uL (4.60-5.80); Red Cell Distribution Width 14.7 % (11.0-16.0)
[2021-06-21 06:10] LABS: Alanine Aminotransferase 13 U/L (0-40); Albumin Level 3.7 g/dL (3.5-5.0); Alkaline Phosphatase 81 U/L (39-117); Anion Gap 10 (12-20); Aspartate Amino Transferase 15 U/L (5-37); Bilirubin Total 0.7 mg/dL (0.0-1.0); Blood Urea Nitrogen 10 mg/dL (9-16); Calcium 9.1 mg/dL (8.4-10.2); Carbon Dioxide 27 mmol/L (22-29); Chloride 107 mmol/L (96-108); Creatinine Clr Calc Pharmacy 89.3; Estimated Glomerular Filt Rate > 60; Glucose Fasting 87 mg/dL (60-99); Potassium 3.8 mmol/L (3.3-5.1); Sodium 140 mmol/L (135-145)
[2021-06-21] MEDS: Levothyroxine Sodium 125 MCG TABLET PO (09:05)
[2021-06-21] MEDS: Digoxin 0.125 MG TABLET PO (09:06)
[2021-06-21] MEDS: Atorvastatin Calcium 10 MG TABLET PO (09:06)
[2021-06-21] MEDS: 0.9 % Sodium Chloride Flush 3 ML SYRINGE IVFLUSH ×2 (09:06→14:58)
[2021-06-21] MEDS: amLODIPine Besylate 5 MG TABLET PO (09:06)
[2021-06-21] MEDS: carvediloL 25 MG TABLET PO ×2 (09:06→21:58)
--- NOTE | 2021-06-21 10:23 | PM.CNCAR ---
History of Present Illness History of Present Illness Date of Service: 06/21/21 Chief complaint: infected pacer site Narrative: This is a cardiology consultation regarding a possibly infected pacemaker. It seems that patient recently underwent a generator change. He is a patient of . He has chronic atrial fibrillation for which he is on carvedilol, digoxin and Xarelto. He underwent pacemaker generator change with a dual-chamber device on the 14 of this month. Now he states that his entire left upper extremity swollen up. He is also having discharge coming out of his pacemaker site. Additionally complains of shortness of breath but that seems chronic based on outpatient documentation. Hence he is admitted for further care. He has been noted to be anemic too. Review of Systems Review of Systems: Yes all other systems are reviewed and are negative Cardiovascular: Cardiovascular: Reports as per HPI, Reports no additional cardiovascular complaints, Denies acrocyanosis, Denies cool extremities, Denies painful fingertips, Denies chest pain, Denies chest pain at rest, Denies diaphoresis, Denies syncope, Denies irregular heart rhythm, Denies claudication, Reports leg edema, Denies lightheadedness, Denies palpitations and Reports dyspnea Respiratory: Respiratory: Reports dyspnea Neurologic: Denies syncope Endocrine: Endocrine: Denies palpitations PMFSH Past Medical History Medical History Chronic atrial fibrillation Elevated cholesterol Hypothyroid On anticoagulant therapy Pacemaker Sleep apnea Stenosis of artery of left lower extremity Family History Family History Father HTN (hypertension) Mother Liver problem Surgical History Surgical History History of esophagogastroduodenoscopy (EGD) History of permanent cardiac pacemaker placement Social History Social History Household Members: Unknown / Unable to assess Housing: Unknown / Unable to assess Alcohol intake: current Alcohol intake frequency: does not drink Patient Tobacco Use Status: Former Tobacco user Quit Date: 1980 Tobacco use type: Cigarette Years Smoked: 30 Use of substances other than those prescribed or required for medical reasons: Unknown Currently Displaying Signs/Symptoms of Drug Intoxication Withdrawal: No Advance Directives: No Advance Directives on File: No Do you have thoughts of harming others: None Do you have a plan to hurt others: No Plan Recently lost weight without trying: No How much weight loss: Not applicable Eating poorly because of decreased appetite: No Nutrition screen score: 0 Nutrition Risks: No Nutritional Risk Poor oral hygiene: No Meds Allergies Allergy/AdvReac Type Severity Reaction Status Date / Time Penicillins [PCN] Allergy Intermediate RASH Verified 04/27/21 11:30 Active Medications: Current Medications Acetaminophen (Acetaminophen 325 Mg Tablet) 650 mg PO Q6H PRN PRN Reason: Pain, Mild (Pain Scale 1-3) Albuterol Sulfate (Albuterol Sulfate 90 Mcg 8 Gm Inhaler) 2 puff INHALE Q4H PRN PRN Reason: Wheezing Amlodipine Besylate (Amlodipine Besylate 5 Mg Tablet) 5 mg PO DAILY [facility]; Protocol Last Admin: 06/21/21 09:06 Dose: 5 mg Documented by: Atorvastatin Calcium (Atorvastatin Calcium 10 Mg Tablet) 10 mg PO DAILY [facility] Last Admin: 06/21/21 09:06 Dose: 10 mg Documented by: Carvedilol (Carvedilol 25 Mg Tablet) 25 mg PO BID [facility]; Protocol Last Admin: 06/21/21 09:06 Dose: 25 mg Documented by: Digoxin (Digoxin 0.125 Mg Tablet) 0.125 mg PO DAILY [facility] Last Admin: 06/21/21 09:06 Dose: 0.125 mg Documented by: Aztreonam 2 gm/ Sodium (Chloride) 100 mls @ 100 mls/hr IV BID@1000,2200 [facility] Last Admin: 06/21/21 09:27 Dose: 100 mls/hr Documented by: Vancomycin HCl 750 mg/ Sodium (Chloride) 265 mls @ 265 mls/hr IV Q12H [facility] Last Infusion: 06/21/21 05:36 Dose: Infused Documented by: Levothyroxine Sodium (Levothyroxine Sodium 125 Mcg Tablet) 125 mcg PO DAILY [facility] Last Admin: 06/21/21 09:05 Dose: 125 mcg Documented by: Melatonin (Melatonin 3 Mg Tablet) 6 mg PO BEDTIME PRN PRN Reason: Insomnia Pharmacy Consult (Consult Rx Perform Med Rec) 1 each MISCELLANE ONCE PRN PRN Reason: Consult order Pharmacy Consult (Consult Rx Vancomycin Dosing) 1 each MISCELLANE DAILY PRN PRN Reason: Consult order Rivaroxaban (Rivaroxaban 20 Mg Tablet) 20 mg PO DAILY@1700 [facility] Sodium Chloride (0.9 % Sodium Chloride Flush 3 Ml Syringe) 3 ml IVFLUSH QSHIFT [facility] Last Admin: 06/21/21 09:06 Dose: 3 ml Documented by: Home Medications Medication Instructions Recorded Confirmed Last Taken Type carvedilol 25 mg tablet 25 mg PO BID 04/27/21 06/20/21 06/11/21 06:30 History digoxin 125 mcg (0.125 mg) tablet 125 mcg PO DAILY 04/27/21 06/20/21 06/11/21 06:30 History levothyroxine 125 mcg capsule 125 mcg PO DAILY 04/27/21 06/20/21 06/11/21 06:30 History rivaroxaban 20 mg tablet (Xarelto) 20 mg PO DAILY 04/27/21 06/20/21 Unknown History albuterol sulfate 90 mcg/actuation 2 puff PO Q4-6H PRN 06/20/21 06/20/21 Unknown History aerosol inhaler amlodipine 5 mg tablet 1 tab PO DAILY 06/20/21 06/20/21 Unknown History atorvastatin 10 mg tablet 1 tab PO DAILY 06/20/21 06/20/21 Unknown History Physical Exam Vital Signs: Vital Signs: Last Vital Signs Temp 97.2 F 06/21/21 06:58 Pulse 88 06/21/21 09:06 Resp 20 06/21/21 06:58 BP 155/68 H 06/21/21 09:06 Pulse Ox 95 06/21/21 06:58 Body Mass Index 39.0 Const: General: cooperative and no acute distress HENMT: Other: Unremarkable Neck: Neck: Yes normal visual inspection Chest: Chest palpation & inspection: normal inspection of the chest Resp: Auscultation: clear to auscultation bilaterally, no crackles and no wheezes Cardio: Jugular venous distension: no JVD Palpation: normal PMI Heart sounds: S1 normal heart sound present, S2 normal heart sound present, no gallops, no murmurs and no rubs GI: Palpation (GI): Soft to palpation Back/Spine/Pelvis: Other: unremarkable Skin: General skin exam: no rashes or lesions noted Neuro: Cranial nerves: Yes Other cranial nerve findings present Extrem: Other: 2+ edema, both LE; 1-2+ edema left UE. Psych: Mental Status: other Results Labs and Meds Result diagrams: 06/21/21 04:36 06/21/21 04:36 Lab results: Laboratory Results - last 24 hr 06/20/21 06/20/21 06/20/21 12:17 12:58 12:58 WBC 4.1 L RBC 2.86 L Hgb 7.0 L* Hct 23.2 L MCV 81.1 MCH 24.5 L MCHC 30.2 L RDW 14.4 Plt Count 169 MPV 10.7 Immature Gran % (Auto) 0.2 Neut % (Auto) 71.6 Lymph % (Auto) 17.3 L [place] % (Auto) 7.4 Eos % (Auto) 3.0 Baso % (Auto) 0.5 Lymph # (Auto) 0.7 L [place] # (Auto) 0.3 Eos # (Auto) 0.1 Baso # (Auto) 0.0 Abs Immat Gran (auto) 0.01 Absolute Neuts (auto) 2.9 Absolute Nucleated RBC 0.000 Nucleated RBC % (auto) 0.0 ESR 18 H PT INR Sodium Potassium Chloride Carbon Dioxide Anion Gap BUN Creatinine Estim Creat Clear Calc Estimated GFR Random Glucose Fasting Glucose Lactic Acid Calcium Magnesium Total Bilirubin Direct Bilirubin AST ALT Alkaline Phosphatase Troponin I High Sens B-Natriuretic Peptide Total Protein Albumin Stool Occult Blood COVID-19 (EVELINA) Negative COVID-19 Clin Com See Note Blood Type Antibody Screen Crossmatch 06/20/21 06/20/21 06/20/21 12:58 12:58 12:58 WBC RBC Hgb Hct MCV MCH MCHC RDW Plt Count MPV Immature Gran % (Auto) Neut % (Auto) Lymph % (Auto) [place] % (Auto) Eos % (Auto) Baso % (Auto) Lymph # (Auto) [place] # (Auto) Eos # (Auto) Baso # (Auto) Abs Immat Gran (auto) Absolute Neuts (auto) Absolute Nucleated RBC Nucleated RBC % (auto) ESR PT 25.0 H INR 2.2 H Sodium 138 Potassium 4.1 Chloride 104 Carbon Dioxide 29 Anion Gap 9 L BUN 14 Creatinine 0.92 Estim Creat Clear Calc 76.7 Estimated GFR > 60 Random Glucose 111 Fasting Glucose Lactic Acid Calcium 9.6 Magnesium 2.1 Total Bilirubin 0.5 Direct Bilirubin 0.2 AST 21 ALT 17 Alkaline Phosphatase 95 Troponin I High Sens 4.4 B-Natriuretic Peptide 269 H Total Protein 6.7 Albumin 4.1 Stool Occult Blood COVID-19 (EVELINA) COVID-19 [place] Blood Type Antibody Screen Crossmatch 06/20/21 06/20/21 06/20/21 12:58 14:43 14:43 WBC RBC Hgb Hct MCV MCH MCHC RDW Plt Count MPV Immature Gran % (Auto) Neut % (Auto) Lymph % (Auto) [place] % (Auto) Eos % (Auto) Baso % (Auto) Lymph # (Auto) [place] # (Auto) Eos # (Auto) Baso # (Auto) Abs Immat Gran (auto) Absolute Neuts (auto) Absolute Nucleated RBC Nucleated RBC % (auto) ESR PT INR Sodium Potassium Chloride Carbon Dioxide Anion Gap BUN Creatinine Estim Creat Clear Calc Estimated GFR Random Glucose Fasting Glucose Lactic Acid 1.0 Calcium Magnesium Total Bilirubin Direct Bilirubin AST ALT Alkaline Phosphatase Troponin I High Sens B-Natriuretic Peptide Total Protein Albumin Stool Occult Blood POSITIVE COVID-19 (EVELINA) [employer] Blood Type O Positive Antibody Screen NEGATIVE Crossmatch See Detail 06/21/21 06/21/21 04:36 04:36 WBC 4.0 L RBC 2.95 L Hgb 7.1 L Hct 23.9 L MCV 81.0 MCH 24.1 L MCHC 29.7 L RDW 14.7 Plt Count 139 L MPV 11.2 Immature Gran % (Auto) Neut % (Auto) Lymph % (Auto) [place] % (Auto) Eos % (Auto) Baso % (Auto) Lymph # (Auto) [place] # (Auto) Eos # (Auto) Baso # (Auto) Abs Immat Gran (auto) Absolute Neuts (auto) Absolute Nucleated RBC 0.000 Nucleated RBC % (auto) 0.0 ESR PT INR Sodium 140 Potassium 3.8 Chloride 107 Carbon Dioxide 27 Anion Gap 10 L BUN 10 Creatinine 0.79 Estim Creat Clear Calc 89.3 Estimated GFR > 60 Random Glucose Fasting Glucose 87 Lactic Acid Calcium 9.1 Magnesium Total Bilirubin 0.7 Direct Bilirubin AST 15 ALT 13 Alkaline Phosphatase 81 Troponin I High Sens B-Natriuretic Peptide Total Protein 6.0 L Albumin 3.7 Stool Occult Blood COVID-19 (EVELINA) COVID-19 [place] Blood Type Antibody Screen Crossmatch Imaging Radiologist's impression: Impressions Chest X-Ray 06/20/21 11:23 IMPRESSION: Mild cardiomegaly. No acute pulmonary process seen. Assessment and Plan (1) Infection of pacemaker pulse generator site: Status: Acute (2) Left upper extremity swelling: Status: Acute (3) Anemia: Qualifiers: Anemia type: unspecified type Qualified Code(s): D64.9 - Anemia, unspecified Status: Acute (4) Non-rheumatic mitral regurgitation: Status: Acute EKG with atrial fibrillation at 75/Min. Nonspecific ST-T changes. Recent echocardiogram showed low normal LVEF, severe left atrial dilatation and severe mitral regurgitation; moderate tricuspid regurgitation. Clinically, his left upper extremity is swollen up but he is on anticoagulation with Xarelto. Hence we will await the ultrasound to see the etiology for this. Otherwise coveredwith broad-spectrum antibiotics. Will discuss with EP who implanted the pacemaker. Anemia management per hospitalist. Echocardiogram tomorrow. Procedures Date of Service Date of Service: 06/21/21
--- NOTE | 2021-06-21 11:12 | HO.PM.IMPN ---
Subjective Subjective Date of Service: 06/21/21 Interval History: No acute issues overnight; monitor AFib rate control Review of Systems Denies chest pain Denies shortness of breath; however describes 5 pillow orthopnea Denies nausea vomiting diarrhea Denies fevers chills Physical Exam Vital Signs: Vital Signs: Last Vital Signs Temp 97.2 F 06/21/21 06:58 Pulse 88 06/21/21 09:06 Resp 20 06/21/21 06:58 BP 155/68 H 06/21/21 09:06 Pulse Ox 95 06/21/21 06:58 Body Mass Index 39.0 Const: Other: Awake alert oriented x3 no acute distress HENMT: Other: Mucous membranes moist; for oropharynx clear Chest: Other: Left anterior chest just inferior to the clavicle erythematous edematous; suture line from recent pacer insertion draining serosanguineous fluid.; dressing citrated this a.m. Tender to palpation. Resp: Other: Clear to auscultation bilaterally no rales rhonchi or wheezes Cardio: Other: No S4; positive S1-S2; no S3 murmurs of gallops GI: Other: Soft nontender nondistended with normoactive bowel sounds there is no appreciable hepatosplenomegaly Neuro: Other: Cranial nerves true through 12 grossly intact as tested. Motor is 5/5 all extremities. Sensation intact. Cognition appropriate Extrem: Other: Bilateral edema noted; left upper extremity edematous Objective Data Active Medications Acetaminophen (Acetaminophen 325 Mg Tablet) 650 mg PO Q6H PRN PRN Reason: Pain, Mild (Pain Scale 1-3) Albuterol Sulfate (Albuterol Sulfate 90 Mcg 8 Gm Inhaler) 2 puff INHALE Q4H PRN PRN Reason: Wheezing Amlodipine Besylate (Amlodipine Besylate 5 Mg Tablet) 5 mg PO DAILY [facility]; Protocol Last Admin: 06/21/21 09:06 Dose: 5 mg Documented by: COTEMA Atorvastatin Calcium (Atorvastatin Calcium 10 Mg Tablet) 10 mg PO DAILY [facility] Last Admin: 06/21/21 09:06 Dose: 10 mg Documented by: COTEMA Carvedilol (Carvedilol 25 Mg Tablet) 25 mg PO BID [facility]; Protocol Last Admin: 06/21/21 09:06 Dose: 25 mg Documented by: COTEMA Digoxin (Digoxin 0.125 Mg Tablet) 0.125 mg PO DAILY [facility] Last Admin: 06/21/21 09:06 Dose: 0.125 mg Documented by: VIVIENNE Aztreonam 2 gm/ Sodium (Chloride) 100 mls @ 100 mls/hr IV BID@1000,2200 [facility] Last Infusion: 06/21/21 10:32 Dose: 0 mls/hr Documented by: VIVIENNE Vancomycin HCl 750 mg/ Sodium (Chloride) 265 mls @ 265 mls/hr IV Q12H [facility] Last Infusion: 06/21/21 05:36 Dose: 0 mls/hr Documented by: RADHA Levothyroxine Sodium (Levothyroxine Sodium 125 Mcg Tablet) 125 mcg PO DAILY [facility] Last Admin: 06/21/21 09:05 Dose: 125 mcg Documented by: VIVIENNE Melatonin (Melatonin 3 Mg Tablet) 6 mg PO BEDTIME PRN PRN Reason: Insomnia Pharmacy Consult (Consult Rx Perform Med Rec) 1 each MISCELLANE ONCE PRN PRN Reason: Consult order Pharmacy Consult (Consult Rx Vancomycin Dosing) 1 each MISCELLANE DAILY PRN PRN Reason: Consult order Rivaroxaban (Rivaroxaban 20 Mg Tablet) 20 mg PO DAILY@1700 [facility] Sodium Chloride (0.9 % Sodium Chloride Flush 3 Ml Syringe) 3 ml IVFLUSH QSHIFT [facility] Last Admin: 06/21/21 09:06 Dose: 3 ml Documented by: VIVIENNE Labs CBC & Chem 7: 06/21/21 04:36 06/21/21 04:36 Labs: Laboratory Results - last 24 hr 06/20/21 06/20/21 06/20/21 12:17 12:58 12:58 MCV 81.1 MCH 24.5 L MCHC 30.2 L RDW 14.4 Plt Count 169 MPV 10.7 Immature Gran % (Auto) 0.2 Neut % (Auto) 71.6 Lymph % (Auto) 17.3 L [place] % (Auto) 7.4 Eos % (Auto) 3.0 Baso % (Auto) 0.5 Lymph # (Auto) 0.7 L [place] # (Auto) 0.3 Eos # (Auto) 0.1 Baso # (Auto) 0.0 Abs Immat Gran (auto) 0.01 Absolute Neuts (auto) 2.9 Absolute Nucleated RBC 0.000 Nucleated RBC % (auto) 0.0 ESR 18 H PT INR Anion Gap Estim Creat Clear Calc Estimated GFR Random Glucose Fasting Glucose Lactic Acid Calcium Magnesium Total Bilirubin Direct Bilirubin AST ALT Alkaline Phosphatase Troponin I High Sens B-Natriuretic Peptide Total Protein Albumin Stool Occult Blood COVID-19 (EVELINA) Negative COVID-Beauty Noted See Note Blood Type Antibody Screen Crossmatch 06/20/21 06/20/21 06/20/21 12:58 12:58 12:58 MCV MCH MCHC RDW Plt Count MPV Immature Gran % (Auto) Neut % (Auto) Lymph % (Auto) [place] % (Auto) Eos % (Auto) Baso % (Auto) Lymph # (Auto) [place] # (Auto) Eos # (Auto) Baso # (Auto) Abs Immat Gran (auto) Absolute Neuts (auto) Absolute Nucleated RBC Nucleated RBC % (auto) ESR PT 25.0 H INR 2.2 H Anion Gap 9 L Estim Creat Clear Calc 76.7 Estimated GFR > 60 Random Glucose 111 Fasting Glucose Lactic Acid Calcium 9.6 Magnesium 2.1 Total Bilirubin 0.5 Direct Bilirubin 0.2 AST 21 ALT 17 Alkaline Phosphatase 95 Troponin I High Sens 4.4 B-Natriuretic Peptide 269 H Total Protein 6.7 Albumin 4.1 Stool Occult Blood COVID-19 (EVELINA) VeraLight Blood Type Antibody Screen Crossmatch 06/20/21 06/20/21 06/20/21 12:58 14:43 14:43 MCV MCH MCHC RDW Plt Count MPV Immature Gran % (Auto) Neut % (Auto) Lymph % (Auto) [place] % (Auto) Eos % (Auto) Baso % (Auto) Lymph # (Auto) [place] # (Auto) Eos # (Auto) Baso # (Auto) Abs Immat Gran (auto) Absolute Neuts (auto) Absolute Nucleated RBC Nucleated RBC % (auto) ESR PT INR Anion Gap Estim Creat Clear Calc Estimated GFR Random Glucose Fasting Glucose Lactic Acid 1.0 Calcium Magnesium Total Bilirubin Direct Bilirubin AST ALT Alkaline Phosphatase Troponin I High Sens B-Natriuretic Peptide Total Protein Albumin Stool Occult Blood POSITIVE COVID-19 (EVELINA) [facility] Blood Type O Positive Antibody Screen NEGATIVE Crossmatch See Detail 06/21/21 06/21/21 04:36 04:36 MCV 81.0 MCH 24.1 L MCHC 29.7 L RDW 14.7 Plt Count 139 L MPV 11.2 Immature Gran % (Auto) Neut % (Auto) Lymph % (Auto) [place] % (Auto) Eos % (Auto) Baso % (Auto) Lymph # (Auto) [place] # (Auto) Eos # (Auto) Baso # (Auto) Abs Immat Gran (auto) Absolute Neuts (auto) Absolute Nucleated RBC 0.000 Nucleated RBC % (auto) 0.0 ESR PT INR Anion Gap 10 L Estim Creat Clear Calc 89.3 Estimated GFR > 60 Random Glucose Fasting Glucose 87 Lactic Acid Calcium 9.1 Magnesium Total Bilirubin 0.7 Direct Bilirubin AST 15 ALT 13 Alkaline Phosphatase 81 Troponin I High Sens B-Natriuretic Peptide Total Protein 6.0 L Albumin 3.7 Stool Occult Blood COVID-19 (EVELINA) COVID-19 Clin Com Blood Type Antibody Screen Crossmatch Assessment and Plan (1) Left upper extremity swelling: Status: Acute (2) Anemia: Status: Acute (3) Infection of pacemaker pulse generator site: Status: Acute Assessment and Plan: 81-year-old male presents after pacemaker replacement 06/11/2021 with redness and drainage. No fevers overnight; left arm remains edematous and slightly uncomfortable 1. Cellulitis; query pacemaker pocket infection Continue Vanco/aztreonam ID consult pending; EP doctor Rishabh to see later today 2. Atrial fibrillation(chronic); rate control on current therapies Continue Xarelto as ordered Continue carvedilol/digoxin as ordered. 3. Anemia Received 1 unit of packed cells overnight with no change in hemoglobin; will transfuse 2 units of packed red blood cells with Lasix in between. Follow-up CBC in a.m. 4. Left upper extremity swelling Check duplex 5. Hypothyroidism Continue outpatient replacement as previously ordered Check TSH in a.m. Full code/DVT prophylaxis; Xarelto Quality Stroke Does the patient have a stroke diagnosis?: No VTE Prior VTE?: No VTE Risk Level:: Medical - moderate - high VTE Device Contraindication: Treatment Not Indicated VTE Drug Contraindication: N/A - Med Ordered
[2021-06-21] MEDS: Furosemide 20 MG/2 ML VIAL IVPUSH (14:58)
[2021-06-21 15:09] LABS: Vancomycin Trough 7.6 mcg/mL (10.0-20.0)
--- NOTE | 2021-06-21 15:24 | HE.PHANOTE ---
VANCOMYCIN DOSING CHANGE BASED OFF NEW RANDOM OF 7.6 VANCO DOSE CHANGED TO 1750MG Q 24 FOR PREDICTED AUC OF 436MG/L HR AND TROUGH OF 13.1. NEXT TROUGH ORDERED FOR 06/23 @ 1500
[2021-06-21] MEDS: Rivaroxaban 20 MG TABLET PO (17:21)
[2021-06-21] MEDS: vancomycin HCL 1,000 MG, vancomycin HCL 750 MG in 0.9 % Sodium Chloride 500 ML 267.5 MG IV (19:36)
--- NOTE | 2021-06-21 20:36 | P.CONCA_ITS ---
History of Present Illness History of Present Illness Date of Service: 06/21/21 Requesting physician: Juan Pablo Mohr Chief complaint: infected pacer site Narrative: New HFCCA Electrophysiology Consult 81 yo M w/ hx of AF, complete heart block s/p PPM s/p gen change on 06/11 here for pocket and left arm swelling. Patient noted 2 days ago swelling at the pacemaker site and bloody discharge, says he had started xarelto 1 week ago as expected. He denied fevers, chills, cough, pain Review of Systems Review of Systems: Yes all other systems are reviewed and are negative, unobtainable due to endotracheal tube, Unobtainable due to mental condition, Unobtainable due to mental status and Other PMFSH Past Medical History Medical History Chronic atrial fibrillation Elevated cholesterol Hypothyroid On anticoagulant therapy Pacemaker Sleep apnea Stenosis of artery of left lower extremity Family History Family History Father HTN (hypertension) Mother Liver problem Surgical History Surgical History History of esophagogastroduodenoscopy (EGD) History of permanent cardiac pacemaker placement Social History Social History Household Members: Unknown / Unable to assess Housing: Unknown / Unable to assess Alcohol intake: current Alcohol intake frequency: does not drink Patient Tobacco Use Status: Former Tobacco user Quit Date: 1980 Tobacco use type: Cigarette Years Smoked: 30 Use of substances other than those prescribed or required for medical reasons: Unknown Currently Displaying Signs/Symptoms of Drug Intoxication Withdrawal: No Advance Directives: No Advance Directives on File: No Do you have thoughts of harming others: None Do you have a plan to hurt others: No Plan Recently lost weight without trying: No How much weight loss: Not applicable Eating poorly because of decreased appetite: No Nutrition screen score: 0 Nutrition Risks: No Nutritional Risk Poor oral hygiene: No Meds Allergies Allergy/AdvReac Type Severity Reaction Status Date / Time Penicillins [PCN] Allergy Intermediate RASH Verified 04/27/21 11:30 Active Medications: Current Medications Acetaminophen (Acetaminophen 325 Mg Tablet) 650 mg PO Q6H PRN PRN Reason: Pain, Mild (Pain Scale 1-3) Albuterol Sulfate (Albuterol Sulfate 90 Mcg 8 Gm Inhaler) 2 puff INHALE Q4H PRN PRN Reason: Wheezing Amlodipine Besylate (Amlodipine Besylate 5 Mg Tablet) 5 mg PO DAILY [facility]; Protocol Last Admin: 06/21/21 09:06 Dose: 5 mg Documented by: Atorvastatin Calcium (Atorvastatin Calcium 10 Mg Tablet) 10 mg PO DAILY [facility] Last Admin: 06/21/21 09:06 Dose: 10 mg Documented by: Carvedilol (Carvedilol 25 Mg Tablet) 25 mg PO BID [facility]; Protocol Last Admin: 06/21/21 09:06 Dose: 25 mg Documented by: Digoxin (Digoxin 0.125 Mg Tablet) 0.125 mg PO DAILY [facility] Last Admin: 06/21/21 09:06 Dose: 0.125 mg Documented by: Aztreonam 2 gm/ Sodium (Chloride) 100 mls @ 100 mls/hr IV BID@1000,2200 [facility] Last Infusion: 06/21/21 10:32 Dose: Infused Documented by: Vancomycin HCl 1,000 mg/Vancomycin HCl 750 mg/ Sodium Chloride 535 mls @ 267.5 mls/hr IV Q24H [facility] Last Admin: 06/21/21 19:36 Dose: 267.5 mls/hr Documented by: Levothyroxine Sodium (Levothyroxine Sodium 125 Mcg Tablet) 125 mcg PO DAILY [facility] Last Admin: 06/21/21 09:05 Dose: 125 mcg Documented by: Melatonin (Melatonin 3 Mg Tablet) 6 mg PO BEDTIME PRN PRN Reason: Insomnia Pharmacy Consult (Consult Rx Perform Med Rec) 1 each MISCELLANE ONCE PRN PRN Reason: Consult order Pharmacy Consult (Consult Rx Vancomycin Dosing) 1 each MISCELLANE DAILY PRN PRN Reason: Consult order Sodium Chloride (0.9 % Sodium Chloride Flush 3 Ml Syringe) 3 ml IVFLUSH QSHIFT [facility] Last Admin: 06/21/21 14:58 Dose: 3 ml Documented by: Home Medications Medication Instructions Recorded Confirmed Last Taken Type carvedilol 25 mg tablet 25 mg PO BID 04/27/21 06/20/21 06/11/21 06:30 History digoxin 125 mcg (0.125 mg) tablet 125 mcg PO DAILY 04/27/21 06/20/21 06/11/21 06:30 History levothyroxine 125 mcg capsule 125 mcg PO DAILY 04/27/21 06/20/21 06/11/21 06:30 History rivaroxaban 20 mg tablet (Xarelto) 20 mg PO DAILY 04/27/21 06/20/21 Unknown History albuterol sulfate 90 mcg/actuation 2 puff PO Q4-6H PRN 06/20/21 06/20/21 Unknown History aerosol inhaler amlodipine 5 mg tablet 1 tab PO DAILY 06/20/21 06/20/21 Unknown History atorvastatin 10 mg tablet 1 tab PO DAILY 06/20/21 06/20/21 Unknown History Physical Exam Vital Signs: Vital Signs: Last Vital Signs Temp 97.9 F 06/21/21 19:11 Pulse 83 06/21/21 19:11 Resp 18 06/21/21 19:11 BP 155/67 H 06/21/21 19:11 Pulse Ox 95 06/21/21 15:24 Body Mass Index 39.0 HENMT: Mouth: Normal oral and palatal mucosa present Resp: Effort & Inspection: normal respiratory effort Auscultation: clear to auscultation bilaterally Cardio: Jugular venous distension: no JVD Palpation: normal PMI Rate: regular rate Skin: General skin exam: no rashes or lesions noted Extrem: Right lower extremity: No no edema Left lower extremity: No no edema Results Labs and Meds Result diagrams: 06/21/21 04:36 06/21/21 04:36 Lab results: Laboratory Results - last 24 hr 06/20/21 06/21/21 06/21/21 14:43 04:36 04:36 WBC 4.0 L RBC 2.95 L Hgb 7.1 L Hct 23.9 L MCV 81.0 MCH 24.1 L MCHC 29.7 L RDW 14.7 Plt Count 139 L MPV 11.2 Absolute Nucleated RBC 0.000 Nucleated RBC % (auto) 0.0 Sodium 140 Potassium 3.8 Chloride 107 Carbon Dioxide 27 Anion Gap 10 L BUN 10 Creatinine 0.79 Estim Creat Clear Calc 89.3 Estimated GFR > 60 Fasting Glucose 87 Calcium 9.1 Total Bilirubin 0.7 AST 15 ALT 13 Alkaline Phosphatase 81 Total Protein 6.0 L Albumin 3.7 Vancomycin Trough Blood Type O Positive Antibody Screen NEGATIVE Crossmatch See Detail 06/21/21 14:12 WBC RBC Hgb Hct MCV MCH MCHC RDW Plt Count MPV Absolute Nucleated RBC Nucleated RBC % (auto) Sodium Potassium Chloride Carbon Dioxide Anion Gap BUN Creatinine Estim Creat Clear Calc Estimated GFR Fasting Glucose Calcium Total Bilirubin AST ALT Alkaline Phosphatase Total Protein Albumin Vancomycin Trough 7.6 L Blood Type Antibody Screen Crossmatch Imaging Radiologist's impression: Impressions Venous Duplex 06/21/21 11:05 IMPRESSION: No DVT demonstrated in the left upper extremity Assessment and Plan (1) Left upper extremity swelling: Status: Acute 1. Pocket swelling and discharge He has had an ultrasound of the extremity that confirmed no clot. He clinically has a pocket hematoma and has dried blood from a superficial bleeder at incision site. I noted the pocket was closed and with sterile gloves and I used chloraprep to clean the incision and confirmed no discharge and no clinical signs of infection. I applied dermabond and then sterstrips to keep the incision approximated in the setting of a pocket hematoma and then placed a tegaderm If cultures are negative by tomorrow, will plan on discharge with doxy 100 mg BID for 2 weeks Will plan on patient coming to my office on 06/23 as previously scheduled at [address] [place] [address] at 9 AM and will have him come back again to see me on 06/30 at noon. Will plan on no xarelto until he sees me on 06/30. Also will plan no showering until he sees me on 06/30 and to continue off of xarelto until then. He can sponge bath but avoid getting the incision site wet No heparin subq or lovenox on this admission Please contact me by [facility] [employer] if any questions or concerns Yenny Shipley [facility] Elect[facility] Attending (2) Anemia: Qualifiers: Anemia type: unspecified type Qualified Code(s): D64.9 - Anemia, unspecified Status: Acute (3) Infection of pacemaker pulse generator site: Status: Acute Assessment & Plan (1) Left upper extremity swelling: Code(s): M79.89 - Other specified soft tissue disorders Category: Medical Plan: 1. Pocket swelling and discharge He has had an ultrasound of the extremity that confirmed no clot. He clinically has a pocket hematoma and has dried blood from a superficial bleeder at incision site. I noted the pocket was closed and with sterile gloves and I used chloraprep to clean the incision and confirmed no discharge and no clinical signs of infection. I applied dermabond and then sterstrips to keep the incision approximated in the setting of a pocket hematoma and then placed a tegaderm If cultures are negative by tomorrow, will plan on discharge with doxy 100 mg BID for 2 weeks Will plan on patient coming to my office on 06/23 as previously scheduled at [address] [place] [address] at 9 AM and will have him come back again to see me on 06/30 at noon. Will plan on no xarelto until he sees me on 06/30. Also will plan no showering until he sees me on 06/30 and to continue off of xarelto until then. He can sponge bath but avoid getting the incision site wet No heparin subq or lovenox on this admission Please contact me by [facility] if any questions or concerns Yenny Shipley [facility] Elect[facility] Attending (2) Anemia: Code(s): D64.9 - Anemia, unspecified Category: Medical Qualifiers: Anemia type: unspecified type Qualified Code(s): D64.9 - Anemia, unspecified (3) Infection of pacemaker pulse generator site: Code(s): T82.7XXA - Infection and inflammatory reaction due to other cardiac and vascular devices, implants and grafts, initial encounter Category: Medical Procedures Date of Service Date of Service: 06/21/21
[2021-06-22 04:00] VITALS: BP 140/60; PULSE 82; RESP 18; TEMP 36.4; O2SAT 94
[2021-06-22 05:47] LABS: MANUAL DIFF FLAG NO
[2021-06-22 05:53] LABS: Basophils Percent Auto 0.7 % (0-2); Eosinophils Absolute Auto 0.2 X10*3/uL (0.0-0.4); Eosinophils Percent Auto 4.1 % (0-4); Hematocrit 28.3 % (42-52); Hemoglobin 9.1 g/dl (14.0-18.0); Imm Gran Abs Auto 0.02 X10*3/uL (0.00-0.03); Imm Gran Pct Auto 0.4 % (0.0-0.4); Lymphocytes Absolute Auto 0.8 X10*3/uL (1.2-4.9); Lymphocytes Percent Auto 17.6 % (20-40); Mean Corpuscular HGB Conc 32.2 g/dl (31.0-36.0); Mean Corpuscular Hemoglobin 25.7 pg (27.0-33.0); Mean Corpuscular Volume 79.9 fL (80-98); Mean Platelet Volume 11.1 fL (9.4-12.4); Monocytes Absolute Auto 0.4 X10*3/uL (0.1-1.2); Monocytes Percent Auto 9.5 % (2-11); Neutrophils Absolute Auto 3.1 X10*3/uL (2.0-8.3); Neutrophils Percent Auto 67.7 % (45-73); Platelet Count 152 X10*3/uL (160-400); Red Blood Count 3.54 X10*6/uL (4.60-5.80); Red Cell Distribution Width 14.5 % (11.0-16.0); White Blood Count 4.6 X10*3/uL (4.8-10.8)
[2021-06-22 06:13] LABS: Alanine Aminotransferase 14 U/L (0-40); Albumin Level 3.8 g/dL (3.5-5.0); Alkaline Phosphatase 86 U/L (39-117); Anion Gap 10 (12-20); Aspartate Amino Transferase 17 U/L (5-37); Bilirubin Total 0.9 mg/dL (0.0-1.0); Blood Urea Nitrogen 12 mg/dL (9-16); Calcium 9.1 mg/dL (8.4-10.2); Carbon Dioxide 28 mmol/L (22-29); Chloride 107 mmol/L (96-108); Estimated Glomerular Filt Rate > 60; Glucose Random 96 mg/dL (60-115); Potassium 3.9 mmol/L (3.3-5.1); Sodium 141 mmol/L (135-145); Total Protein 6.1 g/dL (6.5-8.0)
[2021-06-22 07:17] VITALS: BP 169/80; PULSE 83; RESP 18; TEMP 36.6; O2SAT 94
[2021-06-22] MEDS: Levothyroxine Sodium 125 MCG TABLET PO (09:01)
[2021-06-22] MEDS: carvediloL 25 MG TABLET PO ×2 (09:01→20:52)
[2021-06-22] MEDS: Digoxin 0.125 MG TABLET PO (09:01)
[2021-06-22] MEDS: Atorvastatin Calcium 10 MG TABLET PO (09:01)
[2021-06-22] MEDS: amLODIPine Besylate 5 MG TABLET PO (09:02)
[2021-06-22] MEDS: 0.9 % Sodium Chloride Flush 3 ML SYRINGE IVFLUSH ×2 (09:02→18:26)
--- NOTE | 2021-06-22 09:23 | PM.PNCARD ---
Subjective Subjective Date of Service: 06/22/21 <JAQUELIN Riojas - Last Filed: 06/22/21 11:35> 06/22/21 <Derrell Kelly MD - Last Filed: 06/22/21 11:49> Principal diagnosis: infection/ hematoma PPM site, anemia <JAQUELIN Riojas - Last Filed: 06/22/21 11:35> Interval history: Cardiology follow up for the above. Seen at 0820. Today he reports feeling well. Denies discomfort at PPM site. No fever. Left arm swelling less. Dressing dry over PPM site. Denies chest pains, sob, palpitation. Leg edema present but he states less that admit. <JAQUELIN Riojas - Last Filed: 06/22/21 11:35> Review of Systems Review of Systems as above <JAQUELIN Riojas - Last Filed: 06/22/21 11:35> Yes all other systems are reviewed and are negative <JAQUELIN Riojas - Last Filed: 06/22/21 11:35> Physical Exam Vital Signs: Last Vital Signs Temp 97.9 F 06/22/21 07:17 Pulse 83 06/22/21 07:17 Resp 18 06/22/21 07:17 BP 169/80 H 06/22/21 07:17 Pulse Ox 94 06/22/21 07:17 Body Mass Index 39.0 <JAQUELIN Riojas - Last Filed: 06/22/21 11:35> Const General: cooperative, healthy appearing, no acute distress, alert and awake <JAQUELIN Riojas - Last Filed: 06/22/21 11:35> Orientation/consciousness: patient oriented x3 <JAQUELIN Riojas - Last Filed: 06/22/21 11:35> Neck Neck: Yes normal visual inspection and Yes no JVD <JAQUELIN Riojas - Last Filed: 06/22/21 11:35> Carotids: carotid upstroke abnormal <JAQUELIN Riojas - Last Filed: 06/22/21 11:35> Chest Other: Dry gauze covered by tegaderm, over left upper chest PPM site. mild swelling, nontender around area. No drainage. <Jayda Paige NPC - Last Filed: 06/22/21 11:35> Resp Effort & Inspection: normal respiratory effort, able to speak in complete sentences and not labored <Jayda Paige [facility] - Last Filed: 06/22/21 11:35> Auscultation: clear to auscultation bilaterally, rales (left base), no rhonchi and no wheezes <Jayda Grecia [facility] - Last Filed: 06/22/21 11:35> Cardio Palpation: normal PMI <Jayda Grecia [facility] - Last Filed: 06/22/21 11:35> Rate: regular rate <Jayda Grecia [facility] - Last Filed: 06/22/21 11:35> Rhythm: regular rhythm <Jayda Grecia [facility] - Last Filed: 06/22/21 11:35> Heart sounds: S1 normal heart sound present and S2 normal heart sound present <Jayda Grecia [facility] - Last Filed: 06/22/21 11:35> Peripheral pulses: Peripheral pulses 2+ throughout <Jayda Grecia [facility] - Last Filed: 06/22/21 11:35> GI Inspection: Yes normal to inspection <Jayda Grecia [facility] - Last Filed: 06/22/21 11:35> Neuro General: patient oriented x3 <Jayda Grecia [facility] - Last Filed: 06/22/21 11:35> Extrem Other: Swelling noted in left upper extremety. Bilateral lower leg edema <Jayda Paige [facility] - Last Filed: 06/22/21 11:35> Results Labs and Meds Result diagrams: : 06/22/21 05:27 06/22/21 05:27 <Jayda Paige [facility] - Last Filed: 06/22/21 11:35> Lab results: Laboratory Results - last 24 hr 06/20/21 06/21/21 06/22/21 14:43 14:12 05:27 WBC 4.6 L RBC 3.54 L Hgb 9.1 L D Hct 28.3 L MCV 79.9 L MCH 25.7 L MCHC 32.2 RDW 14.5 Plt Count 152 L MPV 11.1 Immature Gran % (Auto) 0.4 Neut % (Auto) 67.7 Lymph % (Auto) 17.6 L Benson % (Auto) 9.5 Eos % (Auto) 4.1 H Baso % (Auto) 0.7 Lymph # (Auto) 0.8 L Benson # (Auto) 0.4 Eos # (Auto) 0.2 Baso # (Auto) 0.0 Abs Immat Gran (auto) 0.02 Absolute Neuts (auto) 3.1 Absolute Nucleated RBC 0.000 Nucleated RBC % (auto) 0.0 Sodium Potassium Chloride Carbon Dioxide Anion Gap BUN Creatinine Estim Creat Clear Calc Estimated GFR Random Glucose Calcium Total Bilirubin AST ALT Alkaline Phosphatase Total Protein Albumin Vancomycin Trough 7.6 L Blood Type O Positive Antibody Screen NEGATIVE Crossmatch See Detail 06/22/21 05:27 WBC RBC Hgb Hct MCV MCH MCHC RDW Plt Count MPV Immature Gran % (Auto) Neut % (Auto) Lymph % (Auto) Benson % (Auto) Eos % (Auto) Baso % (Auto) Lymph # (Auto) Benson # (Auto) Eos # (Auto) Baso # (Auto) Abs Immat Gran (auto) Absolute Neuts (auto) Absolute Nucleated RBC Nucleated RBC % (auto) Sodium 141 Potassium 3.9 Chloride 107 Carbon Dioxide 28 Anion Gap 10 L BUN 12 Creatinine 0.83 Estim Creat Clear Calc 85.0 Estimated GFR > 60 Random Glucose 96 Calcium 9.1 Total Bilirubin 0.9 AST 17 ALT 14 Alkaline Phosphatase 86 Total Protein 6.1 L Albumin 3.8 Vancomycin Trough Blood Type Antibody Screen Crossmatch <JAQUELIN Riojas - Last Filed: 06/22/21 11:35> Imaging Radiologist's impression: Impressions Venous Duplex 06/21/21 11:05 IMPRESSION: No DVT demonstrated in the left upper extremity <JAQUELIN Riojas - Last Filed: 06/22/21 11:35> Progress Note: A&P Assessment and plan (1) Infection of pacemaker pulse generator site: Status: Acute <JAQUELIN Riojas Last Filed: 06/22/21 11:35> Assessment and Plan: Pacemaker generator change done on 06/[address] Pérez. Had resumed Xarelto as directed. Presented to ED 06/20 with left arm swelling, PPM site swelling, drainage. Has been evaluated by Dr Pérez: hematoma, bloody drainage at site from superficial bleeder, No pocket infection. No fevers. Blood cultures negative X2. Venous duplex left upper extremity shows no DVT. Xarelto has been held. Anemia with Hgb 7.0. Has received 3 units of packed cells and Hgb 9.1 this am. Dressing over PPM site clean and dry this am. He reports left arm swelling is less. Continue with plan for PO doxycycline per Dr Pérez and he will follow wound as outpt. Leave current dressing intact. Continue to hold Xarelto. <Jayda Paige NP-C - Last Filed: 06/22/21 11:35> (2) Left upper extremity swelling: Status: Acute <Jayda Paige NP-C - Last Filed: 06/22/21 11:35> Assessment and Plan: improving. No DVT <Jayda Paige NP-C - Last Filed: 06/22/21 11:35> (3) Non-rheumatic mitral regurgitation: Status: Acute <Jayda Paige NP-C - Last Filed: 06/22/21 11:35> Assessment and Plan: Severe MR on echo 2018. Echo done on 04/29/21 shows EF 50-55%, RA and LA severely dilated, severe mitral regurgitation, mod TR, no pulm HTN. Since pt is off his anticoagulation, Dr Kelly discussed diagnostic cardiac cath to eval for CAD and his mitral regurgitation. Pt is agreeable to the plan. Will make arrangements to transfer to [facility] today and for diagnostic Right and left heart cath tomorrow. Report given to [facility] hospitalist. [facility] will call when bed is available. <Jayda Paige NP-C - Last Filed: 06/22/21 11:35> (4) Anemia: Status: Acute <Jayda Paige NP-C - Last Filed: 06/22/21 11:35> Assessment and Plan: Hematoma, bloody drainage from PPM site as above. xarelto to be held until cleared by Dr Pérez to restart. <Jayda Paige NP-C - Last Filed: 06/22/21 11:35> Fall Risk Details Current Medications: Current Medications Acetaminophen (Acetaminophen 325 Mg Tablet) 650 mg PO Q6H PRN PRN Reason: Pain, Mild (Pain Scale 1-3) Albuterol Sulfate (Albuterol Sulfate 90 Mcg 8 Gm Inhaler) 2 puff INHALE Q4H PRN PRN Reason: Wheezing Amlodipine Besylate (Amlodipine Besylate 5 Mg Tablet) 5 mg PO DAILY [facility]; Protocol Last Admin: 06/22/21 09:02 Dose: 5 mg Documented by: Atorvastatin Calcium (Atorvastatin Calcium 10 Mg Tablet) 10 mg PO DAILY [facility] Last Admin: 06/22/21 09:01 Dose: 10 mg Documented by: Carvedilol (Carvedilol 25 Mg Tablet) 25 mg PO BID [facility]; Protocol Last Admin: 06/22/21 09:01 Dose: 25 mg Documented by: Digoxin (Digoxin 0.125 Mg Tablet) 0.125 mg PO DAILY [facility] Last Admin: 06/22/21 09:01 Dose: 0.125 mg Documented by: Aztreonam 2 gm/ Sodium (Chloride) 100 mls @ 100 mls/hr IV BID@1000,2200 [facility] Last Infusion: 06/21/21 23:00 Dose: Infused Documented by: Vancomycin HCl 1,000 mg/Vancomycin HCl 750 mg/ Sodium Chloride 535 mls @ 267.5 mls/hr IV Q24H [facility] Last Infusion: 06/21/21 21:45 Dose: Infused Documented by: Levothyroxine Sodium (Levothyroxine Sodium 125 Mcg Tablet) 125 mcg PO DAILY [facility] Last Admin: 06/22/21 09:01 Dose: 125 mcg Documented by: Melatonin (Melatonin 3 Mg Tablet) 6 mg PO BEDTIME PRN PRN Reason: Insomnia Pharmacy Consult (Consult Rx Perform Med Rec) 1 each MISCELLANE ONCE PRN PRN Reason: Consult order Pharmacy Consult (Consult Rx Vancomycin Dosing) 1 each MISCELLANE DAILY PRN PRN Reason: Consult order Sodium Chloride (0.9 % Sodium Chloride Flush 3 Ml Syringe) 3 ml IVFLUSH QSHIFT [facility] Last Admin: 06/22/21 09:02 Dose: 3 ml Documented by: <JAQUELIN Riojas - Last Filed: 06/22/21 11:35> Time Spent With Patient Time: Total time spent is greater than 50% in coordination of care (as documented) at patient's floor/unit and/or counseling patient: <JAQUELIN Riojas - Last Filed: 06/22/21 11:35> Time with patient: 25 - 35 minutes <JAQUELIN Riojas - Last Filed: 06/22/21 11:35> Progress Note: Quality Stroke Does the patient have a stroke diagnosis?: No <JAQUELIN Riojas - Last Filed: 06/22/21 11:35> Procedures Date of Service Date of Service: 06/22/21 <JAQUELIN Riojas - Last Filed: 06/22/21 11:35>
--- NOTE | 2021-06-22 11:31 | PM.DS ---
DS: Providers Provider Date of Service: 06/22/21 Date of admission: 06/20/21 15:01 Primary care physician: Dusty Oconnor MD Consults: 06/20/21 15:42 Consult to Cardiology Routine Consulting Provider: Yousif Hogue Reason for consultation: Query infected pacer Has provider been notified: No Consult to Infectious Diseases Routine Consulting Provider: Argenis Romero Reason for consultation: infected paced port DS: Diagnosis Discharge Diagnosis (1) Infection of pacemaker pulse generator site: Status: Acute (2) Left upper extremity swelling: Status: Acute (3) Non-rheumatic mitral regurgitation: Status: Acute (4) Anemia: Status: Acute DS: Summary Hospital Course Hospital Course: 81-year-old male with a past medical history of chronic AFib, hyperlipidemia, hypothyroid, pacemaker on Xarelto, sleep apnea, S/P pacemaker placement on 06/11 presenting to the ED complaining of LUE and LLE swelling/edema, SOB, and drainage from pacemaker site x2 days.? Reports orthopnea, sleeping with 4-5 pillows at night.? Hospital course Patient admitted to telemetry; continued on vancomycin and aztreonam. Seen in consultation by Cardiology/EP. Plan was to DC on doxycycline 100 mg b.i.d. for 14 days and follow up with EP in the office. Xarelto to be held. Seen by ; his recommendation was cardiac catheterization secondary to advanced/severe MR. At this point in time, patient is medically suitable for transfer to [facility] for catheterization. Currently asymptomatic; monitor showing AFib rate controlled. Time Spent with Patient Time attestation: Total time spent providing and/or coordinating discharge services: Discharge coordination time: Greater than 30 minutes Quality: Stroke Does the patient have a stroke diagnosis?: No Physical Exam Vital Signs: Vital Signs: Last Vital Signs Temp 97.9 F 06/22/21 07:17 Pulse 83 06/22/21 07:17 Resp 18 06/22/21 07:17 BP 169/80 H 06/22/21 07:17 Pulse Ox 94 06/22/21 07:17 Body Mass Index 39.0 Const: Other: Awake alert oriented x3 no acute distress HENMT: Other: Mucous membranes moist; for oropharynx clear Chest: Other: Left anterior chest just inferior to the clavicle erythematous edematous; suture line from recent pacer insertion draining serosanguineous fluid. Resp: Other: Clear to auscultation bilaterally no rales rhonchi or wheezes Cardio: Other: No S4; positive S1-S2; no S3 murmurs of gallops IRR/IRR GI: Other: Soft nontender nondistended with normoactive bowel sounds there is no appreciable hepatosplenomegaly Neuro: Other: Cranial nerves true through 12 grossly intact as tested. Motor is 5/5 all extremities. Sensation intact. Cognition appropriate Extrem: Other: Bilateral lower extremity edema noted; left upper extremity edematous DS: Data Data Completed and Pending Labs on day of discharge: Laboratory Results - last 24 hr 06/20/21 06/21/21 06/22/21 14:43 14:12 05:27 WBC 4.6 L RBC 3.54 L Hgb 9.1 L D Hct 28.3 L MCV 79.9 L MCH 25.7 L MCHC 32.2 RDW 14.5 Plt Count 152 L MPV 11.1 Immature Gran % (Auto) 0.4 Neut % (Auto) 67.7 Lymph % (Auto) 17.6 L [place] % (Auto) 9.5 Eos % (Auto) 4.1 H Baso % (Auto) 0.7 Lymph # (Auto) 0.8 L [place] # (Auto) 0.4 Eos # (Auto) 0.2 Baso # (Auto) 0.0 Abs Immat Gran (auto) 0.02 Absolute Neuts (auto) 3.1 Absolute Nucleated RBC 0.000 Nucleated RBC % (auto) 0.0 Sodium Potassium Chloride Carbon Dioxide Anion Gap BUN Creatinine Estim Creat Clear Calc Estimated GFR Random Glucose Calcium Total Bilirubin AST ALT Alkaline Phosphatase Total Protein Albumin Vancomycin Trough 7.6 L Blood Type O Positive Antibody Screen NEGATIVE Crossmatch See Detail 06/22/21 05:27 WBC RBC Hgb Hct MCV MCH MCHC RDW Plt Count MPV Immature Gran % (Auto) Neut % (Auto) Lymph % (Auto) [place] % (Auto) Eos % (Auto) Baso % (Auto) Lymph # (Auto) [place] # (Auto) Eos # (Auto) Baso # (Auto) Abs Immat Gran (auto) Absolute Neuts (auto) Absolute Nucleated RBC Nucleated RBC % (auto) Sodium 141 Potassium 3.9 Chloride 107 Carbon Dioxide 28 Anion Gap 10 L BUN 12 Creatinine 0.83 Estim Creat Clear Calc 85.0 Estimated GFR > 60 Random Glucose 96 Calcium 9.1 Total Bilirubin 0.9 AST 17 ALT 14 Alkaline Phosphatase 86 Total Protein 6.1 L Albumin 3.8 Vancomycin Trough Blood Type Antibody Screen Crossmatch Preliminary micro results at discharge 06/20/21 12:58 Blood Culture - Preliminary Blood - Venous No growth after 24 hours. 06/20/21 12:17 Blood Culture - Preliminary Blood - Venous No growth after 24 hours. Discharge Plan Discharge Patient Disposition: er [facility] Discharge Diagnosis: Severe MR; S/P pacer insertion with infection to site Referrals: Dusty Oconnor MD [Primary Care Provider] - 1 Week Discharge Medications: New doxycycline hyclate 100 mg tablet 100 mg PO BID Qty: 28 RF: 0 Continued atorvastatin 10 mg tablet 1 tab PO DAILY RF: 0 amlodipine 5 mg tablet 1 tab PO DAILY RF: 0 albuterol sulfate 90 mcg/actuation HFA aerosol inhaler 2 puff PO Q4-6H PRN (Reason: Wheezing) RF: 0 carvedilol 25 mg tablet 25 mg PO BID RF: 0 levothyroxine 125 mcg capsule 125 mcg PO DAILY RF: 0 digoxin 125 mcg (0.125 mg) tablet 125 mcg PO DAILY RF: 0 Discontinued Xarelto 20 mg tablet 20 mg PO DAILY RF: 0 Discharge Orders: Discharge Order (Routine); Ordered 06/22/21 Ordered By: Juan Pablo Mohr Diet: advance to usual diet Activity on Discharge: As tolerated Stand Alone Forms: Patient Portal Discharge page Care Plan Goals: Complete cardiac work up Health Concerns: Resolution of infection Plan of Treatment: Antibiotic therapy further plans as per Cardiology Assessment: Stable upon transfer
--- NOTE | 2021-06-22 11:31 | MHC.CM.PN ---
CM MET WITH PT WITH THE HELP OF [facility] TECHNICIAN PT REPORTS HE LIVES WITH A FRIEND IN [place] PT REPORTS HE IS INDEPENDENT WITH CARE PT HAS NO SERVICES BUT REPORTS THIS IS BECAUSE HE JUST MOVED HERE FROM [place] PT HAS NO DME PT CONFIRMS HIS PCP IS RENARD TAYLOR PT REPORTS HE ALREADY HAS A HCP-COPY REQUESTED IMM DELIVERED CURRENT DC PLAN IS HOME WITH NO SERVICES PT TO ARRANGE TRANSPORT
[2021-06-22 12:00] VITALS: BP 186/82; PULSE 82; RESP 18; TEMP 36.2; O2SAT 97
--- NOTE | 2021-06-22 12:51 | W.PM.IDCN ---
History of Present Illness Data of Consult Service Date: 06/22/21 Requesting physician: Juan Pablo Mohr Primary Care Provider: Dusty Oconnor MD [facility] Reason for consult: pacer pocket infection He presents with left leg and arm swelling and some leakage,serosanguinous from pacer site. He has had pacer placed at [facility] on 06/11. He has no fever or increased WBC. He has no bacteremia and no positive cultures seen. He had pacer removed and new pacer inserted and attached to wires. Review of Systems Review of Systems: Yes all other systems are reviewed and are negative [facility] Past Medical History Medical History Chronic atrial fibrillation Elevated cholesterol Hypothyroid On anticoagulant therapy Pacemaker Sleep apnea Stenosis of artery of left lower extremity Family History Family History Father HTN (hypertension) Mother Liver problem Family history: reviewed and not pertinent Surgical History Surgical History History of esophagogastroduodenoscopy (EGD) History of permanent cardiac pacemaker placement Social History Social History Household Members: Unknown / Unable to assess Housing: Unknown / Unable to assess Alcohol intake: current Alcohol intake frequency: does not drink Patient Tobacco Use Status: Former Tobacco user Quit Date: 1980 Tobacco use type: Cigarette Years Smoked: 30 service: No Current occupational status: unemployed Meds Allergies Allergy/AdvReac Type Severity Reaction Status Date / Time Penicillins [PCN] Allergy Intermediate RASH Verified 04/27/21 11:30 Active Medications: Current Medications Acetaminophen (Acetaminophen 325 Mg Tablet) 650 mg PO Q6H PRN PRN Reason: Pain, Mild (Pain Scale 1-3) Albuterol Sulfate (Albuterol Sulfate 90 Mcg 8 Gm Inhaler) 2 puff INHALE Q4H PRN PRN Reason: Wheezing Amlodipine Besylate (Amlodipine Besylate 5 Mg Tablet) 5 mg PO DAILY [facility]; Protocol Last Admin: 06/22/21 09:02 Dose: 5 mg Documented by: Atorvastatin Calcium (Atorvastatin Calcium 10 Mg Tablet) 10 mg PO DAILY [facility] Last Admin: 06/22/21 09:01 Dose: 10 mg Documented by: Carvedilol (Carvedilol 25 Mg Tablet) 25 mg PO BID [facility]; Protocol Last Admin: 06/22/21 09:01 Dose: 25 mg Documented by: Digoxin (Digoxin 0.125 Mg Tablet) 0.125 mg PO DAILY [facility] Last Admin: 06/22/21 09:01 Dose: 0.125 mg Documented by: Aztreonam 2 gm/ Sodium (Chloride) 100 mls @ 100 mls/hr IV BID@1000,2200 [facility] Last Infusion: 06/22/21 11:19 Dose: Infused Documented by: Vancomycin HCl 1,000 mg/Vancomycin HCl 750 mg/ Sodium Chloride 535 mls @ 267.5 mls/hr IV Q24H [facility] Last Infusion: 06/21/21 21:45 Dose: Infused Documented by: Levothyroxine Sodium (Levothyroxine Sodium 125 Mcg Tablet) 125 mcg PO DAILY [facility] Last Admin: 06/22/21 09:01 Dose: 125 mcg Documented by: Melatonin (Melatonin 3 Mg Tablet) 6 mg PO BEDTIME PRN PRN Reason: Insomnia Pharmacy Consult (Consult Rx Perform Med Rec) 1 each MISCELLANE ONCE PRN PRN Reason: Consult order Pharmacy Consult (Consult Rx Vancomycin Dosing) 1 each MISCELLANE DAILY PRN PRN Reason: Consult order Sodium Chloride (0.9 % Sodium Chloride Flush 3 Ml Syringe) 3 ml IVFLUSH QSHIFT [facility] Last Admin: 06/22/21 09:02 Dose: 3 ml Documented by: Home Medications Medication Instructions Recorded Confirmed Last Taken Type carvedilol 25 mg tablet 25 mg PO BID 04/27/21 06/29/21 06/11/21 06:30 History digoxin 125 mcg (0.125 mg) tablet 125 mcg PO DAILY 04/27/21 06/29/21 06/11/21 06:30 History levothyroxine 125 mcg capsule 125 mcg PO DAILY 04/27/21 06/29/21 06/11/21 06:30 History albuterol sulfate 90 mcg/actuation 2 puff PO Q4-6H PRN 06/20/21 06/29/21 Unknown History aerosol inhaler amlodipine 5 mg tablet 5 mg PO DAILY 06/29/21 06/29/21 Unknown History atorvastatin 10 mg tablet 10 mg PO DAILY 06/29/21 06/29/21 Unknown History furosemide 20 mg tablet 60 mg PO BID 06/29/21 06/29/21 Unknown History Physical Exam Vital Signs: Vital Signs: Last Vital Signs Temp 97.2 F 06/22/21 12:00 Pulse 82 06/22/21 12:00 Resp 18 06/22/21 12:00 BP 186/82 H 06/22/21 12:00 Pulse Ox 97 06/22/21 12:00 Body Mass Index 39.0 Const: General: cooperative HENMT: Head: Yes normal to inspection Ears: hearing grossly normal bilaterally Face and sinus: Yes normal facial exam Eyes: General: appearance normal, both eyes and all related structures Resp: Effort & Inspection: normal respiratory effort Cardio: Rate: regular rate Rhythm: regular rhythm GI: Palpation (GI): Soft to palpation and nontender Skin: General skin exam: no rashes or lesions noted Extrem: Other: pacer site clean,no cellulitis picture reviewed serosanguinous discharge on admission Results Labs CBC & Chem 7: 06/22/21 05:27 06/22/21 05:27 Labs: Short CBC 06/22/21 Range/Units 05:27 WBC 4.6 L (4.8-10.8) X10*3/uL Hgb 9.1 L D (14.0-18.0) g/dl Hct 28.3 L (42-52) % Plt Count 152 L (160-400) X10*3/uL BMP 06/22/21 05:27 Sodium 141 Potassium 3.9 Chloride 107 Carbon Dioxide 28 BUN 12 Creatinine 0.83 Calcium 9.1 Liver Function 06/22/21 Range/Units 05:27 Total Bilirubin 0.9 (0.0-1.0) mg/dL AST 17 (5-37) U/L ALT 14 (0-40) U/L Alkaline Phosphatase 86 (39-117) U/L Albumin 3.8 (3.5-5.0) g/dL Microbiology Microbiology Results: Microbiology 06/20/21 12:58 Blood - Venous Blood Culture - Preliminary No growth after 24 hours. 06/20/21 12:17 Blood - Venous Blood Culture - Preliminary No growth after 24 hours. Assessment and Plan (1) Left upper extremity swelling: Status: Acute There had been serosanguinous drainage from pacer placed 9 days before arrival. He has replacement pacer. He has no fever or chills and no bacteremia He looks well Would give po Doxycycline for 14 days as long as cultures unremarkable No Aztreonam Stop Vancomycin on discharge unless further changes such as fever or purulence Follow with [facility]
--- NOTE | 2021-06-22 13:13 | PC.NURSE ---
Skin assessment completed. Patient has a surgical incision to left chest, red and swollen no discharge. MD aware. No other skin issues noted at this time.
--- NOTE | 2021-06-22 14:13 | MHC.CM.PN ---
PATIENT TRANSFERRING TO [facility]
[2021-06-22] MEDS: vancomycin HCL 1,000 MG, vancomycin HCL 750 MG in 0.9 % Sodium Chloride 500 ML 267.5 MG IV (18:26)
[2021-06-22 20:34] VITALS: BP 154/67; PULSE 70
[2021-06-22] MEDS: Metoprolol Tartrate 5 MG in 0.9 % Sodium Chloride 50 ML 220 MG IV (20:34)
[2021-06-22 20:52] VITALS: BP 154/67; PULSE 70
== END 2021-06-22 21:30 | disposition short-term general hospital (02) | DRG 315 ==
LOC: HO.ED 14:11 → HO.EDOVER 15:33 → HO.S3 15:55
PROVIDERS: Physician Assistant; Admitting Provider Hospitalist; Emergency Provider Emergency Medicine; PCP Internal Medicine; Visit Provider Hospitalist
DX: T82.7XXA Infection and inflammatory reaction due to other cardiac and vascular devices, implants and grafts, initial encounter (principal); L76.32 Postprocedural hematoma of skin and subcutaneous tissue following other procedure; I48.20 Chronic atrial fibrillation, unspecified; L03.313 Cellulitis of chest wall; I44.2 Atrioventricular block, complete; E03.9 Hypothyroidism, unspecified; I34.0 Nonrheumatic mitral (valve) insufficiency; E78.5 Hyperlipidemia, unspecified; Z20.822 Contact with and (suspected) exposure to COVID-19; Z87.891 Personal history of nicotine dependence; Z88.0 Allergy status to penicillin; Z79.01 Long term (current) use of anticoagulants; Z79.890 Hormone replacement therapy; Z79.899 Other long term (current) drug therapy
CPT/HCPCS: 36415; 36430; 71045; 80048; 80053; 80076; 80202; 82272; 83605; 83735; 83880; 84484; 85025; 85027; 85610; 85652; 86850; 86900; 86901; 86923; 87040; 87635; 93005; 93971; 96365; 96367; 99285; J1940; J3370; P9016

== ENCOUNTER → 2021-06-29 10:15 | Outpatient (BNVA) | payer MEDICARE, SELFPAY | PROVIDERS: PCP Internal Medicine; Referring Provider Internal Medicine; Visit Provider Internal Medicine Cardiovascular Disease | DX: I50.9 Heart failure, unspecified (principal); I34.0 Nonrheumatic mitral (valve) insufficiency | CPT/HCPCS: 99212 ==

== ENCOUNTER 2021-07-30 11:59 | Outpatient (REF) | payer MEDICARE, SELFPAY ==
--- NOTE | 2021-07-30 | PFT_ITS ---
Forced vital capacity and FEV1 are both slightly decreased. FEV1/FVC ratio is 75, normal. MVV normal. [id number] is also normal. Post-bronchodilator therapy, there is no significant change. Total lung capacity is slightly decreased. Residual volume normal. Diffusion capacity is slightly decreased. CONCLUSION: There is evidence of mild restrictive pulmonary disorder. No response to bronchodilator therapy. Clinical correlation is recommended. MD JEET Hu/ARTIEL / [id number]
== END 2021-07-30 12:00 | disposition home or self-care (01) ==
LOC: HO.RESP 11:59
PROVIDERS: PCP Internal Medicine; Visit Provider Internal Medicine
DX: J43.8 Other emphysema (principal)
CPT/HCPCS: 94060; 94727; 94729

== ENCOUNTER → 2021-09-10 08:29 | Outpatient (BNVA) | payer MEDICARE, SELFPAY | PROVIDERS: PCP Internal Medicine; Visit Provider Internal Medicine Pulmonary Disease | DX: G47.33 Obstructive sleep apnea (adult) (pediatric) (principal); R06.00 Dyspnea, unspecified | CPT/HCPCS: 99202 ==

== ENCOUNTER → 2021-09-17 08:34 | Outpatient (REF) | payer MEDICARE, SELFPAY | LOC: HO.SL 08:34 | PROVIDERS: PCP Internal Medicine; Visit Provider Internal Medicine Pulmonary Disease | DX: G47.33 Obstructive sleep apnea (adult) (pediatric) (principal) | CPT/HCPCS: 95806 ==

== ENCOUNTER → 2021-10-12 08:26 | Outpatient (BNVA) | payer MEDICARE, SELFPAY | PROVIDERS: PCP Internal Medicine; Referring Provider Internal Medicine; Visit Provider Internal Medicine Cardiovascular Disease | DX: I50.9 Heart failure, unspecified (principal); I34.0 Nonrheumatic mitral (valve) insufficiency | CPT/HCPCS: 99212 ==

== ENCOUNTER 2021-11-09 11:08 | Outpatient (REF) | payer MEDICARE, SELFPAY ==
--- NOTE | ~2021-11-09 | XR_ITS ---
EXAMINATION: XR CHEST CLINICAL INFORMATION: Chronic cough COMPARISON: Chest 06/20/2021 TECHNIQUE: 2 views of the chest were obtained. FINDINGS: The lungs are well-expanded and clear of acute process. Heart size is borderline normal. Perivascular is normal. There are pacer electrodes in right atrium and right ventricle. There is mild dextroscoliosis. XR/XR chest 2V IMPRESSION: Unremarkable chest examination.
[2021-11-09 11:29] LABS: MANUAL DIFF FLAG NO
[2021-11-09 12:11] LABS: Basophils Percent Auto 0.7 % (0-2); Eosinophils Absolute Auto 0.2 X10*3/uL (0.0-0.4); Eosinophils Percent Auto 4.8 % (0-4); Hematocrit 34.3 % (42.0-52.0); Hemoglobin 10.1 g/dl (14.0-18.0); Lymphocytes Absolute Auto 0.8 X10*3/uL (1.2-4.9); Mean Corpuscular HGB Conc 29.4 g/dl (31.0-36.0); Mean Corpuscular Hemoglobin 25.3 pg (27.0-33.0); Mean Corpuscular Volume 85.8 fL (80.0-98.0); Mean Platelet Volume 12.7 fL (9.4-12.4); Monocytes Absolute Auto 0.3 X10*3/uL (0.1-1.2); Monocytes Percent Auto 7.3 % (2-11); Neutrophils Percent Auto 68.2 % (45-73); Platelet Count 123 X10*3/uL (160-400); Red Cell Distribution Width 15.7 % (11.0-16.0); White Blood Count 4.4 X10*3/uL (4.8-10.8)
[2021-11-09 12:52] LABS: Cholesterol 125 mg/dL; HDL Cholesterol 47 mg/dL
[2021-11-09 13:19] LABS: LDL Cholesterol Calculated 54 mg/dl; Triglycerides 120 mg/dL
[2021-11-09 13:46] LABS: Estimated Average Glucose 128 mg/dL; Hemoglobin A1c % 6.1 %
== END 2021-11-09 11:09 | disposition home or self-care (01) ==
LOC: HO.XRAY 11:08
PROVIDERS: PCP Nurse Practitioner Family; Visit Provider Nurse Practitioner Family
DX: E78.00 Pure hypercholesterolemia, unspecified (principal); E11.9 Type 2 diabetes mellitus without complications; I10 Essential (primary) hypertension; R05.3 Chronic cough
CPT/HCPCS: 36415; 71046; 80061; 83036; 85025

== ENCOUNTER 2021-11-26 08:28 | Outpatient (REF) | payer MEDICARE, SELFPAY ==
[2021-11-26 11:38] LABS: Anion Gap 13 (12-20); B Type Natriuretic Peptide 186 pg/mL (<100); Blood Urea Nitrogen 19 mg/dL (9-16); Calcium 10.4 mg/dL (8.4-10.2); Carbon Dioxide 32 mmol/L (22-29); Chloride 103 mmol/L (96-108); Estimated Glomerular Filt Rate > 60; Glucose Random 99 mg/dL (60-115); Magnesium 2.2 mg/dL (1.6-2.6); Potassium 4.6 mmol/L (3.3-5.1); Sodium 143 mmol/L (135-145)
[2021-11-26 12:10] LABS: Folate 7.7 ng/mL (> or = 4.0); Vitamin B12 1027 pg/mL (200-900)
[2021-11-26 12:52] LABS: Digoxin < 0.3 ng/mL (0.8-2.0)
== END 2021-11-26 08:29 | disposition home or self-care (01) ==
LOC: HO.LAB 08:28
PROVIDERS: PCP Internal Medicine; Referring Provider Internal Medicine; Visit Provider Internal Medicine Cardiovascular Disease
DX: I48.20 Chronic atrial fibrillation, unspecified (principal); I50.9 Heart failure, unspecified; Z79.899 Other long term (current) drug therapy
CPT/HCPCS: 36415; 80048; 80162; 82607; 82746; 83735; 83880; 99212

== ENCOUNTER → 2021-11-27 08:31 | Outpatient (BNVA) | payer MEDICARE, SELFPAY | PROVIDERS: PCP Nurse Practitioner Family; Visit Provider Internal Medicine Pulmonary Disease | DX: R06.00 Dyspnea, unspecified (principal); G47.33 Obstructive sleep apnea (adult) (pediatric) | CPT/HCPCS: 99212 ==

== ENCOUNTER 2022-02-25 12:39 | Outpatient (REF) | payer MEDICARE, SELFPAY ==
[2022-02-26 11:45] LABS: H Pylori Breath Test Negative (Negative)
== END 2022-02-25 12:40 | disposition home or self-care (01) ==
LOC: HO.LNP 12:39
PROVIDERS: PCP Nurse Practitioner Family; Visit Provider Nurse Practitioner
DX: R19.5 Other fecal abnormalities (principal); K59.00 Constipation, unspecified; D64.9 Anemia, unspecified; A04.8 Other specified bacterial intestinal infections
CPT/HCPCS: 83013; 99202

== ENCOUNTER → 2022-04-21 12:19 | Outpatient (BNVA) | payer MEDICARE, SELFPAY | PROVIDERS: PCP Nurse Practitioner Family; Visit Provider Internal Medicine Pulmonary Disease | DX: Z45.018 Encounter for adjustment and management of other part of cardiac pacemaker (principal); I50.9 Heart failure, unspecified; I34.0 Nonrheumatic mitral (valve) insufficiency; I48.20 Chronic atrial fibrillation, unspecified; G47.33 Obstructive sleep apnea (adult) (pediatric); R06.00 Dyspnea, unspecified; R60.0 Localized edema; Z98.890 Other specified postprocedural states | CPT/HCPCS: 93005; 99212 ==

== ENCOUNTER 2022-04-22 12:07 | Outpatient (REF) | payer MEDICARE, SELFPAY ==
[2022-04-22 12:29] LABS: MANUAL DIFF FLAG NO
[2022-04-22 14:06] LABS: Basophils Percent Auto 0.6 % (0-2); Eosinophils Absolute Auto 0.2 X10*3/uL (0.0-0.4); Eosinophils Percent Auto 3.9 % (0-4); Hematocrit 34.7 % (42.0-52.0); Hemoglobin 11.2 g/dl (14.0-18.0); Imm Gran Abs Auto 0.01 X10*3/uL (0.00-0.03); Imm Gran Pct Auto 0.2 % (0.0-0.4); Lymphocytes Absolute Auto 0.9 X10*3/uL (1.2-4.9); Lymphocytes Percent Auto 19.3 % (20-40); Mean Corpuscular HGB Conc 32.3 g/dl (31.0-36.0); Mean Corpuscular Hemoglobin 27.8 pg (27.0-33.0); Mean Corpuscular Volume 86.1 fL (80.0-98.0); Mean Platelet Volume 11.4 fL (9.4-12.4); Monocytes Absolute Auto 0.4 X10*3/uL (0.1-1.2); Monocytes Percent Auto 7.6 % (2-11); Neutrophils Absolute Auto 3.3 x10*3/uL (2.0-8.3); Neutrophils Percent Auto 68.4 % (45-73); Platelet Count 169 X10*3/uL (160-400); Red Blood Count 4.03 X10*6/uL (4.60-5.80); Red Cell Distribution Width 14.6 % (11.0-16.0); White Blood Count 4.9 X10*3/uL (4.8-10.8)
[2022-04-22 15:06] LABS: Ferritin 58 ng/mL (20-250)
== END 2022-04-22 12:08 | disposition home or self-care (01) ==
LOC: HO.LAB 12:07
PROVIDERS: Nurse Practitioner; Visit Provider Nurse Practitioner Family
DX: D64.9 Anemia, unspecified (principal); Z79.01 Long term (current) use of anticoagulants
CPT/HCPCS: 36415; 82728; 85025; 99212

== ENCOUNTER → 2022-05-17 12:59 | Outpatient (REF) | payer MEDICARE, SELFPAY ==
--- NOTE | 2022-05-17 13:01 | CA_ITS ---
Transthoracic Echocardiogram Patient (Last, First, Middle): Jimbo Salas, Gender: Male Date of : 1940 Age: 82 Procedure Date: 05/17/2022 Procedure Type: Transthoracic Echocardiogram Location: OP Height: 172.72 cm Weight: 105.69 kg BSA: 2.18 m2 Heart Rate: bpm BP: 140 / 70 mmHg Management Services Technician: TO Referring MD: Jayda Paige EMERGENCY PLANNING AND RESPONSE MANAGERMarialuisa Symptoms: I34.0 - Nonrheumatic mitral (valve) insufficiency Study Quality: Adequate ECG Rhythm: Atrial Fibrillation Conclusions: - The left ventricular systolic function is low normal. The calculated ejection fraction is 53% by biplane method. - Severe biatrial enlargement. - There is moderate mitral valve regurgitation. - There is mild tricuspid valve regurgitation. - There is mild aortic valve regurgitation. - There is mild dilatation of the ascending aorta measuring 4.00 cm. Findings Left Ventricle Normal left ventricular cavity size. The left ventricular systolic function is low normal. The calculated ejection fraction is 53% by biplane method. There is no evidence of regional wall motion abnormalities. Diastolic function is indeterminate on the basis of available data. There is mild septal asymmetric hypertrophy. Right Ventricle Normal right ventricular cavity size and systolic function. Atria Severe biatrial enlargement. Aortic Valve There is a normal trileaflet aortic valve. There is mild calcification of the aortic valve. There is no aortic valve stenosis. There is mild aortic valve regurgitation. Mitral Valve There is mild anterior mitral leaflet thickening. The posterior mitral leaflet has restricted mobility. There is moderate mitral valve regurgitation. There is no mitral valve stenosis. Pulmonic Valve There is mild pulmonic valve regurgitation. Tricuspid Valve Normal tricuspid valve structure. There is mild tricuspid valve regurgitation. Mild pulmonary hypertension is present. Great Vessels There is mild dilatation of the ascending aorta measuring 4.00 cm. Venous The inferior vena cava is mildly dilated and collapses less than 50% with inspiration. Pericardium/Pleural There is a trivial pericardial effusion. Prior Study Comparison Changes noted compared to prior study dated: 04/29/2021. Mitral regurgitation seems less prominent. Measurements 2D Linear Measurements IVSd: 1.17 0.6-0.9/0.6-1.0 cm LVIDd: 5.58 3.9-5.3/4.2-5.9 cm LVIDd Index: 2.56 2.4-3.2/2.2-3.1 cm/m2 LVIDs: 3.70 2.0-3.6 cm LVPWd: 0.94 0.7-1.1 cm LA Diam: 4.80 2.7-3.8/3.0-4.0 cm LAIDs Index: 2.20 1.5-2.3 cm/m2 LV Mass: 292.63 67-162/88-224 g LV Mass Index: 134.23 43-95/49-115 g/m2 LVOT Diam: 2.20 3.0+(-)1.3 cm 2D Systolic Function EF 4C: 51.30 >55% EF 2C: 54.50 >55% EF BiP: 52.60 >55% Mitral Valve MV Pk E: 1.00 MV PK A: 0.33 MV Decel Time: 202.00 E/A: 3.00 E'Lateral: 10.40 E'Medial: 6.31 E/E' Med: 15.80 E/E' Lat: 9.60 PHT: 59.00 MVA PHT: 3.73 Decel Wake: 4.93 MR Vol - PW Dopp: 48.16 MR VTI: 1.72 MR ERO: 28.00 MR Alias Neil: 0.36 MR RAD: 0.80 Aortic Valve AoV Pk Neil: 1.35 AoV Mn Neil: 0.84 AoV VTI: 0.25 AoV Pk Grad: 7.00 Aov Mn Grad: 3.00 KELLEN Cont.VTI: 2.86 AI Pk Neil: 4.20 AI Wake: 2.46 LVOT LVOT Pk Neil: 0.98 LVOT Mn Neil: 0.61 LVOT VTI: 0.19 LVOT Pk Grad: 4.00 LVOT Mn Grad: 2.00 LVOT Diam: 2.20 LVOT Area: 3.80 Diastolic Function MV Pk E: 1.00 MV Pk A: 0.33 E/A: 3.00 E'Medial: 6.31 E/E' Med: 15.80 E' Laterial: 10.40 E/E' Lat: 9.60 Right Ventricle TAPSE (mm): 22.30 TVS' Neil: 10.10 Tricuspid Valve TR Pk Neil: 3.03 TR Pk Grad: 37.00 RA Press: 15.00 RVSP: 52.00 Great Vessels Aorta Sinus of Valsalva: 3.76 2.0-3.[address] [place]: 2.86 1.7-3.4 cm Ao Asc: 4.00 2.1-3.4 cm Updated in Other Vendor System with Status of Final Yousif Hogue MD electronically signed on 05/18/2022 11:39:50 AM with status of Final
== END ==
LOC: HO.CARD 12:59
PROVIDERS: Visit Provider Nurse Practitioner Family
DX: I34.0 Nonrheumatic mitral (valve) insufficiency (principal); I50.9 Heart failure, unspecified
CPT/HCPCS: 93306

== ENCOUNTER 2022-06-23 08:51 | Outpatient (REF) | payer MEDICARE, SELFPAY ==
[2022-06-23 10:53] LABS: Alanine Aminotransferase 20 U/L (0-40); Albumin Level 4.2 g/dL (3.5-5.0); Alkaline Phosphatase 105 U/L (39-117); Anion Gap 15 (12-20); Aspartate Amino Transferase 21 U/L (5-37); Bilirubin Total 0.7 mg/dL (0.0-1.0); Blood Urea Nitrogen 12 mg/dL (9-16); Calcium 9.8 mg/dL (8.4-10.2); Carbon Dioxide 28 mmol/L (22-29); Chloride 104 mmol/L (96-108); Cholesterol 127 mg/dL; Estimated Glomerular Filt Rate > 60; Glucose Fasting 100 mg/dL (60-99); HDL Cholesterol 45 mg/dL; Iron 99 mcg/dL (45-160); LDL Cholesterol Calculated 65 mg/dl; Percent Iron Saturation 31 % (15-50); Potassium 4.1 mmol/L (3.3-5.1); Sodium 143 mmol/L (135-145); Total Iron Binding Capacity 317 mcg/dL (228-428); Total Protein 7.2 g/dL (6.5-8.0); Triglycerides 86 mg/dL; Unsaturated Iron Binding 218 ug/dL
[2022-06-23 11:05] LABS: TSH reflex Free T4 1.17 uIU/mL (0.32-4.0); Vitamin D 25-OH Total 32.2 ng/mL (>30)
[2022-06-23 11:27] LABS: Folate 9.2 ng/mL (> or = 4.0); Vitamin B12 1609 pg/mL (200-900)
== END 2022-06-23 08:52 | disposition home or self-care (01) ==
LOC: HO.LAB 08:51
PROVIDERS: PCP Nurse Practitioner Family; Visit Provider Nurse Practitioner Family
DX: I11.0 Hypertensive heart disease with heart failure (principal); I50.9 Heart failure, unspecified; D64.9 Anemia, unspecified; Z13.29 Encounter for screening for other suspected endocrine disorder; Z13.1 Encounter for screening for diabetes mellitus
CPT/HCPCS: 36415; 80053; 80061; 82306; 82607; 82746; 83540; 83735; 84443

== ENCOUNTER → 2023-05-23 23:59 | Outpatient (BNV) | payer MEDICARE, SELFPAY ==
--- NOTE | 2023-05-31 18:44 | MHC.OFFVIS ---
Intake Intake Visit Reasons: Remote Device Check- [employer] Allergies Penicillins [PCN] Allergy (Intermediate, Verified 06/18/22 09:03) [facility] COUNTS INCLUDE 234 BEDS AT THE [facility] Medical History Chronic atrial fibrillation Elevated cholesterol Encounter to establish care Hypothyroid On anticoagulant therapy Pacemaker Sleep apnea Stenosis of artery of left lower extremity Surgical History History of esophagogastroduodenoscopy (EGD) History of permanent cardiac pacemaker placement Family History Father HTN (hypertension) Mother Liver problem Social History Household Members: Unknown / Unable to assess Housing: Unknown / Unable to assess Alcohol intake: former Patient Tobacco Use Status: Former Tobacco user Quit Date: 1980 Tobacco use type: Cigarette Years Smoked: 30 e-Cigarette/Vaping Use: Never Used Second Hand Smoke Exposure: No service: No Current occupational status: unemployed Cognitive needs: No Hearing needs: No Vision needs: Yes (glasses ) Office Procedures Cardiac Device Check Cardiac Device Check Details: PPM Good battery life No new alerts CMS EXPERT 17%, permanent Afib. [id number] Cardiac Device Interrogation, pacemaker Procedure code (CPT) selection complete Assessment & Plan Assessment & Plan (1) Pacemaker: Code(s): Z95.0 - Presence of cardiac pacemaker Coding Level of Care Code Procedure Only Diagnoses Pacemaker Z95.0 CPT Codes Cardiac Device Check - Cardiac Device 12: [id number] Cardiac Device Interrogation, pacemaker ([id number])
== END ==
PROVIDERS: PCP Nurse Practitioner Family; Visit Provider Internal Medicine Cardiovascular Disease
DX: I48.20 Chronic atrial fibrillation, unspecified (principal); Z95.0 Presence of cardiac pacemaker
CPT/HCPCS: 93294

== ENCOUNTER → 2023-08-29 23:59 | Outpatient (BNV) | payer MEDICARE, SELFPAY ==
--- NOTE | 2023-08-30 17:59 | MHC.OFFVIS ---
Intake Intake Visit Reasons: Remote Device Check- [employer] Allergies Penicillins [PCN] Allergy (Intermediate, Verified 06/18/22 09:03) RASH [facility] Medical History Chronic atrial fibrillation Elevated cholesterol Encounter to establish care Hypothyroid On anticoagulant therapy Pacemaker Sleep apnea Stenosis of artery of left lower extremity Surgical History History of esophagogastroduodenoscopy (EGD) History of permanent cardiac pacemaker placement Family History Father HTN (hypertension) Mother Liver problem Social History Household Members: Unknown / Unable to assess Housing: Unknown / Unable to assess Alcohol intake: former Patient Tobacco Use Status: Former Tobacco user Quit Date: 1980 Tobacco use type: Cigarette Years Smoked: 30 e-Cigarette/Vaping Use: Never Used Second Hand Smoke Exposure: No service: No Current occupational status: unemployed Cognitive needs: No Hearing needs: No Vision needs: Yes (glasses ) Office Procedures Cardiac Device Check Cardiac Device Check Details: PPM good battery life Episodes of NSVT recorded on 08/14, 170 beats/min. [id number] Cardiac Device Interrogation, pacemaker Procedure code (CPT) selection complete Assessment & Plan Assessment & Plan (1) Pacemaker: Code(s): Z95.0 - Presence of cardiac pacemaker Plan: Orders: Orders AMB Cardiac Device Follow-up 08/29/23 Z95.0 - Presence of cardiac pacemaker Coding Level of Care Code Procedure Only Diagnoses Pacemaker Z95.0 CPT Codes Cardiac Device Check - Cardiac Device 12: [id number] Cardiac Device Interrogation, pacemaker ([id number])
== END ==
PROVIDERS: PCP Nurse Practitioner Family; Visit Provider Internal Medicine Cardiovascular Disease
DX: I47.29 Other ventricular tachycardia (principal); Z95.0 Presence of cardiac pacemaker
CPT/HCPCS: 93294

== ENCOUNTER → 2023-11-28 23:59 | Outpatient (BNV) | payer MEDICARE, SELFPAY ==
--- NOTE | 2023-12-02 20:37 | MHC.OFFVIS ---
Intake Intake Visit Reasons: Remote device check- [employer] Allergies Penicillins [PCN] Allergy (Intermediate, Verified 06/18/22 09:03) RASH [facility] Medical History Chronic atrial fibrillation Elevated cholesterol Encounter to establish care Hypothyroid On anticoagulant therapy Pacemaker Sleep apnea Stenosis of artery of left lower extremity Surgical History History of esophagogastroduodenoscopy (EGD) History of permanent cardiac pacemaker placement Family History Father HTN (hypertension) Mother Liver problem Social History Household Members: Unknown / Unable to assess Housing: Unknown / Unable to assess Alcohol intake: former Patient Tobacco Use Status: Former Tobacco user Quit Date: 1980 Tobacco use type: Cigarette Years Smoked: 30 e-Cigarette/Vaping Use: Never Used Second Hand Smoke Exposure: No service: No Current occupational status: unemployed Cognitive needs: No Hearing needs: No Vision needs: Yes (glasses ) Office Procedures Cardiac Device Check Cardiac Device Check Details: PPM Good battery life. Recorded NSVT is Afib with aberrancy. [id number] Cardiac Device Interrogation, pacemaker Procedure code (CPT) selection complete Assessment & Plan Assessment & Plan (1) Pacemaker: Code(s): Z95.0 - Presence of cardiac pacemaker Plan Orders: Orders AMB Cardiac Device Follow-up 11/28/23 I48.0 - Paroxysmal atrial fibrillation Coding Level of Care Code Procedure Only Diagnoses Pacemaker Z95.0 CPT Codes Cardiac Device Check - Cardiac Device 12: [id number] Cardiac Device Interrogation, pacemaker ([id number])
== END ==
PROVIDERS: PCP Nurse Practitioner Family; Visit Provider Internal Medicine Cardiovascular Disease
DX: I48.91 Unspecified atrial fibrillation (principal); Z95.0 Presence of cardiac pacemaker
CPT/HCPCS: 93294

== ENCOUNTER → 2024-03-05 23:59 | Outpatient (BNV) | payer MEDICARE, SELFPAY ==
--- NOTE | 2024-03-21 09:00 | MHC.OFFVIS ---
Intake Visit Reasons: Remote Device Check- [employer] Allergies Penicillins [PCN] Allergy (Intermediate, Verified 06/18/22 09:03) RASH [facility] Medical History Chronic atrial fibrillation Elevated cholesterol Encounter to establish care Hypothyroid On anticoagulant therapy Pacemaker Sleep apnea Stenosis of artery of left lower extremity Surgical History History of esophagogastroduodenoscopy (EGD) History of permanent cardiac pacemaker placement Family History Father HTN (hypertension) Mother Liver problem Social History Household Members: Unknown / Unable to assess Housing: Unknown / Unable to assess Alcohol intake: former Patient Tobacco Use Status: Former Tobacco user Tobacco use type: Cigarette Years Smoked: 30 e-Cigarette/Vaping Use: Never Used Second Hand Smoke Exposure: No service: No Current occupational status: unemployed Cognitive needs: No Hearing needs: No Vision needs: Yes (glasses ) Office Procedures Cardiac Device Check Cardiac Device Check Details: [employer] permanent pacemaker. Good battery life. Atrial and ventricular lead thresholds are stable. Atrial paced 100%, ventricular paced 26%. [id number] Cardiac Device Check, pacemaker dual lead Procedure code (CPT) selection complete Assessment & Plan Assessment & Plan (1) Pacemaker: Code(s): Z95.0 - Presence of cardiac pacemaker Category: Medical Plan Coding Level of Care Code Procedure Only Diagnoses Pacemaker Z95.0 CPT Codes Cardiac Device Check - Cardiac Device 2: 47342-GV Cardiac Device Check, pacemaker dual lead ([id number])
== END ==
PROVIDERS: PCP Nurse Practitioner Family; Visit Provider Internal Medicine Cardiovascular Disease
DX: Z45.018 Encounter for adjustment and management of other part of cardiac pacemaker (principal)
CPT/HCPCS: 93294

== ENCOUNTER → 2024-06-12 23:59 | Outpatient (BNV) | payer MEDICARE, SELFPAY ==
--- NOTE | 2024-07-02 09:20 | MHC.OFFVIS ---
Intake Visit Reasons: Remote Device Check- [email or web address] Allergies Penicillins [PCN] Allergy (Intermediate, Verified 06/18/22 09:03) RASH COUNTS INCLUDE 234 BEDS AT THE [facility] Medical History Chronic atrial fibrillation Elevated cholesterol Encounter to establish care Hypothyroid On anticoagulant therapy Pacemaker Sleep apnea Stenosis of artery of left lower extremity Surgical History History of esophagogastroduodenoscopy (EGD) History of permanent cardiac pacemaker placement Family History Father HTN (hypertension) Mother Liver problem Social History Household Members: Unknown / Unable to assess Housing: Unknown / Unable to assess Alcohol intake: former Patient Tobacco Use Status: Former Tobacco user Tobacco use type: Cigarette Years Smoked: 30 e-Cigarette/Vaping Use: Never Used Second Hand Smoke Exposure: No service: No Current occupational status: unemployed Cognitive needs: No Hearing needs: No Vision needs: Yes (glasses ) Office Procedures Cardiac Device Check Cardiac Device Check Details: Permanent pacemaker. Good battery life. Lead threshold and impedance stable. No new alerts. Atrial paced 100%. [id number] Cardiac Device Check, dual lead implantable defibrillator Procedure code (CPT) selection complete Assessment & Plan Assessment & Plan (1) Pacemaker: Code(s): Z95.0 - Presence of cardiac pacemaker Category: Medical Plan Coding Level of Care Code Procedure Only Diagnoses Pacemaker Z95.0 CPT Codes Cardiac Device Check - Cardiac Device 5: 64021-TS Cardiac Device Check, dual lead implantable defibrillator ([id number])
== END ==
PROVIDERS: PCP Nurse Practitioner Family; Visit Provider Internal Medicine Cardiovascular Disease
DX: Z45.018 Encounter for adjustment and management of other part of cardiac pacemaker (principal)
CPT/HCPCS: 93294

== ENCOUNTER → 2024-09-17 23:59 | Outpatient (BNV) | payer MEDICARE, SELFPAY ==
--- NOTE | 2024-09-28 18:22 | A.OFFVIS_ITS ---
Intake Visit Reasons: Remote Device Check- [place] Allergies Penicillins [PCN] Allergy (Intermediate, Verified 06/18/22 09:03) [facility]ASH [facility] Medical History Chronic atrial fibrillation Elevated cholesterol Encounter to establish care Hypothyroid On anticoagulant therapy Pacemaker Sleep apnea Stenosis of artery of left lower extremity Surgical History History of esophagogastroduodenoscopy (EGD) History of permanent cardiac pacemaker placement Family History Father HTN (hypertension) Mother Liver problem Social History Household Members: Unknown / Unable to assess Housing: Unknown / Unable to assess Alcohol intake: former Patient Tobacco Use Status: Former Tobacco user Tobacco use type: Cigarette Years Smoked: 30 e-Cigarette/Vaping Use: Never Used Second Hand Smoke Exposure: No service: No Current occupational status: unemployed Cognitive needs: No Hearing needs: No Vision needs: Yes (glasses ) Office Procedures Cardiac Device Check Cardiac Device Check Details: PPM Good battery life. No new alerts. [id number] Cardiac Device Check, pacemaker dual lead Procedure code (CPT) selection complete Assessment & Plan Assessment & Plan (1) Pacemaker: Code(s): Z95.0 - Presence of cardiac pacemaker Category: Medical Plan Coding Level of Care Code Procedure Only Diagnoses Pacemaker Z95.0 CPT Codes Cardiac Device Check - Cardiac Device 2: 86182-GO Cardiac Device Check, pacemaker dual lead ([id number])
== END ==
PROVIDERS: PCP Nurse Practitioner Family; Visit Provider Internal Medicine Cardiovascular Disease
DX: Z45.018 Encounter for adjustment and management of other part of cardiac pacemaker (principal)
CPT/HCPCS: 93294